=== PATIENT | female | born 1980 | race Caucasian/White ===

== ENCOUNTER 2025-07-27 06:09 | Observation (INO) ==
--- NOTE | 2025-07-27 07:12 | Emergency Department Note ---
Impression & Plan Confusion, Facial tingling, Dizziness ED Provider Note NAME: AMBER VICKERS AGE: 44 SEX: F : 1980 ARRIVES VIA: Ambulance INFORMANT: The patient herself. ED PROVIDER(S): Saba Damon PA-C, [José Beltrán MD] CHIEF COMPLAINT: Confusion HISTORY OF PRESENTING ILLNESS: The patient is a 44-year-old female with a PMH migraine, hypothyroidism, and anxiety who presents to the emergency department via EMS reporting waking up this morning and feeling "off". She describes it as feeling confused, dizzy, and tingling bilaterally on her face. She also reports not being able to "get the correct words to find the right things to say". She reports feeling anxious and feels "stupid being here". She describes the dizziness as both feeling like she is going to pass out and the room is spinning. She reports her symptoms improving from earlier this morning however still feels "off". She denies headache, changes in vision, slurred speech, facial droop, neck pain, weakness in upper or lower extremities, unsteady gait, fever, chest pain, shortness of breath, abdominal pain, nausea or vomiting, urinary symptoms. This has never happened to her before. REVIEW OF SYSTEMS: See HPI for pertinent positives and pertinent negatives. ALLERGIES: Penicillin, contrast, buspirone, cyclobenzaprine, fluoxetine, bee venom MEDICATIONS: See below PAST MEDICAL HISTORY: See below PHYSICAL EXAM: VITALS: Vitals are noted on the nurses note and reviewed by myself. Vital signs stable. GENERAL: 44-year-old female, lying in bed, in no acute distress, nondiaphoretic, well-developed well-nourished. SKIN: Capillary refill less than 2 seconds. HEENT: Normocephalic. PERRLA. EOMI. Nares patent. Mucous membranes moist. Neck is supple without nuchal rigidity. No facial droop. HEART: Regular rate and rhythm without murmurs gallops or rubs. LUNGS: CTA BL without wheezes, rales or rhonchi. No retractions or accessory muscle use. ABDOMEN: Positive BS x 4. Soft, nontender, without masses or organomegaly. No guarding or rebound tenderness. MUSCULOSKELETAL: No gross musculoskeletal defects. Normal gait. 5/5 strength upper and lower extremities bilaterally. No pedal edema. No calf tenderness. NEURO: Patient was alert and oriented to person place and time. Cranial nerves grossly intact. Normal sensation to light and sharp touch. No focal neurological deficits. DIFFERENTIAL DIAGNOSIS: Stroke, TIA, intracranial hemorrhage, malignancy, migraine, arrhythmia, [place], systemic infection, hypoglycemia, hyperglycemia, electrolyte abnormality, thyroid disorder, UTI, medication side effect, BPPV, anemia, among others. ED COURSE AND MEDICAL DECISION MAKING: MEDICATIONS GIVEN: Tylenol 1000 mg IV, 1 L normal saline, meclizine 25 mg PO MONITOR: Continuous aluminum shingle roofer: Order was placed for continuous aluminum shingle roofer. Patient was placed on the aluminum shingle roofer and continuous pulse ox. Patient was noted to be in normal sinus rhythm at an initial rate of 77 bpm per my interpretation. EKG: EKG was interpreted by myself as normal sinus rhythm. No obvious arrhythmia. NH interval 176 ms. QT interval 418 ms. No significant change compared to previous EKG from 05/02/2025. INTERPRETATION OF LABS: I interpreted the labs with full lab results as below in the lab section of this note. Pertinent lab results discussed in the MDM section below. INTERPRETATION OF IMAGING: I informally interpreted the patient's head CT which does not show evidence of obvious mass or hemorrhage and reviewed formal report below. ESCALATION OF CARE CONSIDERED: Escalation of care considered as the patient presents with confusion and feeling off from her baseline. Full workup in the ER completed without abnormality however patient has allergy to IV contrast dye so CTAs could not be ordered. Patient was admitted to the hospitalist for further management and MRI imaging. CONSULTATIONS: On-call [facility] hospitalist - Presented the patient to the provider and negative workup here in the ER. I do believe the patient would warrant from admission for MRI and further management as she does not feel herself. They are agreeable to evaluating the patient and ordering the image. MDM SUMMARY: I evaluated the 44-year-old female who presents to the emergency department due to confusion, feeling dizzy, bilateral tingling on her face, and feeling "off" since this morning. See HPI and PE above. Patient's vitals are stable. Initially Tylenol, 1 L normal saline, and meclizine given for symptom management. Physical exam is not consistent with acute stroke. Neurological exam is unremarkable and patient has full strength in upper and lower extremities. EKG obtained initial rate 77 bpm normal sinus rhythm. Labs reassuring. No leukocytosis. Hemodynamically stable. No electrolyte abnormality. No BURKE. Normal LFTs. Troponin <2.3. Urinalysis shows trace blood. No sign of infection. Patient has a listed IV contrast allergy as anaphylaxis. When discussing this with the patient she does confirm that her throat felt itchy and tingly. CT head without contrast obtained showing no acute infarct, hemorrhage, or mass effect. On reevaluation of the patient she confirms she is feeling less dizzy and slightly better however still is experiencing tingling on her face and head and feeling "off". I had a long discussion with the patient regarding her symptoms and I do believe she warrants admission for further evaluation and MRI imaging. Patient is initially hesitant but after talking with her she does agree to admission for workup. Consultation with the on-call hospitalist can be seen in detail above. They agreed to evaluate the patient and admitting to medicine. Patient was admitted in stable condition. Please see hospitalist note for further workup. DIAGNOSIS: Confusion, facial tingling, dizziness The chart was completed utilizing [employer] Speech voice recognition software. Grammatical errors, random word insertions, pronoun errors, and incomplete sentences are an occasional consequence of this system due to software limitations, ambient noise, and hardware issues. Any formal questions or concerns about the content, text, or information contained within the body of this dictation should be directly addressed to the provider for clarification. TREATMENT PLAN/DISCHARGE INSTRUCTIONS: Patient was admitted to medicine for further management. See their note for further detail and workup. Past Med/Surg History Problem List (Updated 07/28/25 @ 14:20 by Saba Damon PA-C) Dizziness (Acute) Facial tingling (Acute) Confusion (Acute) TIA (transient ischemic attack) Expressive aphasia Generalized anxiety disorder with panic attacks Hypothyroidism (Chronic) Migraine headache (Chronic) Surgical History No significant past surgical history Social History Smoking Status: Never smoker Tobacco Type: Cigarettes Second Hand Exposure: No; Do You Dip or Chew Tobacco: No; Hx Alcohol Use: No Hx Substance Use: No Preferred Language: Kiswahili Communication Ability: Effective Nurses Medical Assistants Phlebotomists Required: No Beliefs That Will Affect Care: None marital status: Single Current Living Situation: Family current occupational status: employed Feels Safe at Home: Yes Assistive Devices: None Allergies Allergies Allergy/AdvReac Type Severity Reaction Status Date / Time bee venom protein (honey bee) Allergy Severe Anaphylaxis Verified 06/20/25 15:38 Penicillins Allergy Severe Anaphylaxis Verified 06/20/25 15:38 tree and shrub pollen Allergy Unknown Unknown Verified 06/20/25 15:38 Iodinated Contrast Media Allergy Anaphylaxis Verified 06/20/25 15:38 buspirone [From BuSpar] AdvReac Intermediate Dizziness Verified 06/20/25 15:38 cyclobenzaprine AdvReac Intermediate Dizziness Verified 06/20/25 15:38 [From Flexeril] fluoxetine [From Prozac] AdvReac Intermediate Dizziness Verified 06/20/25 15:38 Home Meds Home Medications Medication Instructions Recorded Confirmed bupropion HCl 300 mg 24 hr tablet, 300 mg PO HS 05/19/25 07/27/25 extended release cetirizine 10 mg tablet 10 mg PO DAILY PRN Allergy Symptoms 05/19/25 07/27/25 cholecalciferol (vitamin D3) 25 0 mcg PO DAILY 05/19/25 07/27/25 mcg (1,000 unit) capsule (Vitamin D3) cyanocobalamin (vitamin B-12) 1,000 mcg IM WK 05/19/25 07/27/25 1,000 mcg/mL injection solution epinephrine 0.3 mg/0.3 mL 0.3 mg IM DIRECTED PRN Allergic 05/19/25 07/27/25 injection, auto-injector Reaction fluticasone furoate 100 1 inh inhalation DAILY 05/19/25 07/27/25 mcg-vilanterol 25 mcg/dose inhalation powder (Breo Ellipta) levothyroxine 175 mcg tablet 175 mcg PO DAILYBB 05/19/25 07/27/25 quetiapine 50 mg tablet 50 mg PO HS 05/19/25 07/27/25 sumatriptan succinate 25 mg tablet 25 mg PO DIRECTED PRN Migraine 05/19/25 07/27/25 Headache topiramate 100 mg tablet 100 mg PO DAILY 05/19/25 07/27/25 montelukast 10 mg tablet 10 mg PO DAILY 06/20/25 07/27/25 Previous Rx's Medication Instructions Recorded celecoxib 100 mg capsule 100 mg PO BID PRN pain #60 caps 04/21/25 promethazine 25 mg tablet 25 mg PO Q6H PRN nausea and 07/16/25 vomiting #10 tabs aspirin 81 mg tablet,delayed 81 mg PO QAM 20 days #20 tabs 07/28/25 release atorvastatin 40 mg tablet 40 mg PO QAM 30 days #30 tabs 07/28/25 clopidogrel 75 mg tablet 75 mg PO QAM 20 days #20 tabs 07/28/25 Results & Data (ED) Vital Signs Vital Signs - 24 hr 07/27/25 06:12 07/27/25 06:21 07/27/25 06:21 Temperature 36.7 C Temperature Source Oral Pulse Rate 96 H 87 Pulse Rate [Right Finger] Pulse Rhythm [Right Finger] Respiratory Rate 20 Respiratory Effort / Characteristics Non-Labored Respiratory Depth Normal Blood Pressure 141/92 H Blood Pressure [Right Arm] Blood Pressure Mean 108 Blood Pressure Mean [Right Arm] Pulse Oximetry 97 96 Oxygen Delivery Method Room Air Room Air Sepsis Recent Fever Within 48 Hours No Sepsis New/Unexplained Change in Mental Status Yes Sepsis Action Taken by Nursing No Action Required 07/27/25 06:21 07/27/25 07:01 07/27/25 08:02 Temperature Temperature Source Pulse Rate 83 80 Pulse Rate [Right Finger] 85 Pulse Rhythm [Right Finger] Regular Respiratory Rate 20 15 17 Respiratory Effort / Characteristics Non-Labored Respiratory Depth Normal Blood Pressure 147/91 H 121/81 Blood Pressure [Right Arm] 141/92 H Blood Pressure Mean 118 89 Blood Pressure Mean [Right Arm] 108 Pulse Oximetry 96 95 96 Oxygen Delivery Method Room Air Room Air Room Air Sepsis Recent Fever Within 48 Hours Sepsis New/Unexplained Change in Mental Status Sepsis Action Taken by Nursing 07/27/25 08:30 07/27/25 09:00 07/27/25 09:00 Temperature Temperature Source Pulse Rate 73 74 78 Pulse Rate [Right Finger] Pulse Rhythm [Right Finger] Respiratory Rate 13 16 18 Respiratory Effort / Characteristics Respiratory Depth Blood Pressure 121/75 124/83 124/83 Blood Pressure [Right Arm] Blood Pressure Mean 103 100 100 Blood Pressure Mean [Right Arm] Pulse Oximetry 93 95 98 Oxygen Delivery Method Room Air Room Air Room Air Sepsis Recent Fever Within 48 Hours Sepsis New/Unexplained Change in Mental Status Sepsis Action Taken by Nursing 07/27/25 09:30 Temperature Temperature Source Pulse Rate 73 Pulse Rate [Right Finger] Pulse Rhythm [Right Finger] Respiratory Rate 12 Respiratory Effort / Characteristics Respiratory Depth Blood Pressure 120/72 Blood Pressure [Right Arm] Blood Pressure Mean 85 Blood Pressure Mean [Right Arm] Pulse Oximetry 95 Oxygen Delivery Method Room Air Sepsis Recent Fever Within 48 Hours Sepsis New/Unexplained Change in Mental Status Sepsis Action Taken by Nursing Laboratory Data 07/27/25 06:15 07/27/25 06:15 Lab Results 07/27/25 07/27/25 Range/Units 06:15 08:02 WBC 7.10 (4.8-10.8) K/ul RBC 4.45 (4.20-5.40) M/uL Hgb 13.3 (12.0-16.0) g/dL Hct 40.1 (37.0-47.0) % MCV 90.1 (80.0-100.0) fL MCH 29.9 (25.0-34.0) pg MCHC 33.2 (32.0-36.0) g/dL RDW Std Deviation 44.4 (36.4-46.3) fL RDW Coeff of Estuardo 13.5 (11.5-14.5) % Plt Count 326 (130-400) K/uL MPV 9.7 (9.4-12.4) fL Immature Gran % (Auto) 0.7 % Neut % (Auto) 58.1 % Lymph % (Auto) 28.9 % [place] % (Auto) 7.5 % Eos % (Auto) 4.1 % Baso % (Auto) 0.7 % Neut # (Auto) 4.13 (1.40-6.50) K/uL Lymph # (Auto) 2.05 (1.20-3.40) K/uL [place] # (Auto) 0.53 (0.11-0.59) K/uL Eos # (Auto) 0.29 (0.00-0.50) K/uL Baso # (Auto) 0.05 (0.00-0.20) K/uL Immature Gran # (Auto) 0.05 (0.01-0.20) K/uL Sodium 140 (136-145) mmol/L Potassium 3.9 (3.5-5.1) mmol/L Chloride 105 (98-107) mmol/L Carbon Dioxide 27 (21-32) mmol/L Anion Gap 8 (3-11) BUN 11 (6-23) mg/dl Creatinine 0.83 (0.6-1.2) mg/dl Est Cr Clr Drug Dosing 111.4 ml/min eGFR 88.54 BUN/Creatinine Ratio 13.3 (10-20) Glucose 99 (70-99(Fasting)) mg/dl Estimat Average Glucose 108 mg/dl Hemoglobin A1c 5.4 (4.5-5.6) % Calcium 9.5 (8.6-10.3) mg/dl Total Bilirubin 0.4 (0.2-1.0) mg/dl AST 14 (13-39) U/L ALT 15 (7-52) U/L Alkaline Phosphatase 75 (34-104) U/L Troponin I High Sens < 2.3 (0-14) pg/ml Total Protein 7.7 (6.0-8.3) gm/dl Albumin 4.2 (3.4-5.0) gm/dl Globulin 3.5 (2.5-4.0) gm/dl Albumin/Globulin Ratio 1.2 (0.9-2) Triglycerides 137 (0-150) mg/dl Cholesterol 222 H (0-200) mg/dl LDL Cholesterol, Calc 134 mg/dl VLDL Cholesterol, Calc 27 (0-30) mg/dl HDL Cholesterol 61 mg/dl Cholesterol/HDL Ratio 3.6 (0-5) Urine Color Yellow Urine Appearance Clear (Clear) Urine pH 6.5 (4.5-7.5) Ur Specific [place] 1.021 (1.000-1.030) Urine Protein Negative (Negative) Urine Glucose (UA) Negative (Negative) Urine Ketones Negative (Negative) Urine Blood Trace H (Negative) Urine Nitrite Negative (Negative) Urine Bilirubin Negative (Negative) Urine Urobilinogen Negative (Negative) Ur Leukocyte Esterase Negative (Negative) Urine WBC (Auto) 6-10 H (0-5) /hpf Urine RBC (Auto) 0-2 (0-2) /hpf U Hyaline Cast (Auto) 0-2 (0-2) /lpf U Epithel Cells (Auto) 11-20 H (0-2) /hpf Urine Bacteria (Auto) 1+ H (None Seen) Urine Comment Administered Medications Acetaminophen (Acetaminophen 325 Mg Tab) 650 mg PO Q4H PRN PRN Reason: Pain or Fever Stop: 08/26/25 22:25 Last Admin: 07/28/25 13:32 Dose: 650 mg Documented By: PME Aspirin (Aspirin 81 Mg Ectab) [facility] [place] [facility] [place] Stop: 08/27/25 08:59 Last Admin: 07/28/25 09:06 Dose: 81 mg Documented By: PME Atorvastatin Calcium (Atorvastatin 40 Mg Tab) 40 [facility] [place] [facility] [place] Stop: 08/27/25 08:59 Last Admin: 07/28/25 09:06 Dose: 40 mg Documented By: PME Clopidogrel Bisulfate (Clopidogrel Bisulfate 75 Mg Tab) 75 [facility] [place] [facility] [place] Stop: 08/27/25 08:59 Last Admin: 07/28/25 09:06 Dose: 75 mg Documented By: PME Enoxaparin Sodium (Enoxaparin Inj 60 Mg/0.6 Ml Syr) 60 mg SQ Q24H [facility] Stop: 08/26/25 17:59 Last Admin: 07/27/25 18:36 Dose: 60 mg Documented By: SANDEE Levothyroxine Sodium (Levothyroxine Sodium 175 Mcg Tablet) [facility] Stop: 08/27/25 06:29 Last Admin: 07/28/25 05:35 Dose: 175 mcg Documented By: alexus Montelukast Sodium (Montelukast Sodium 10 Mg Tablet) 10 mg PO [facility] Stop: 08/26/25 21:14 Last Admin: 07/27/25 21:49 Dose: 10 mg Documented By: alexus Quetiapine Fumarate (Quetiapine Fumarate 25 Mg Tablet) 50 mg PO [facility] Stop: 08/26/25 20:59 Last Admin: 07/27/25 20:35 Dose: 50 mg Documented By: alexus Topiramate (Topiramate 100 Mg Tab) 100 mg PO [facility] Stop: 08/26/25 21:14 Last Admin: 07/27/25 21:49 Dose: 100 mg Documented By: alexus Discontinued Medications Sodium Chloride (Nss) 1,000 mls @ 999 mls/hr IV .Q1H1M ONE Stop: 07/27/25 08:59 Last Infusion: 07/27/25 10:24 Dose: Infused Documented By: Admin: 07/27/25 08:27 Dose: 999 mls/hr Documented By: LANDON Acetaminophen (Ofirmev) 1,000 mg in 100 mls @ 400 mls/hr IV NOW STA Stop: 07/27/25 08:13 Last Infusion: 07/27/25 09:26 Dose: Infused Documented By: Admin: 07/27/25 08:27 Dose: 400 mls/hr Documented By: LANDON Meclizine HCl (Meclizine Hcl 25 Mg Tab) 25 mg PO NOW STA Stop: 07/27/25 08:59 Last Admin: 07/27/25 09:43 Dose: Not Given Documented By: LANDON Imaging Data Radiologist's Impression: Chest X-Ray 07/27/25 07:20 EXAM: XR chest 1V portable CLINICAL HISTORY: Confusion, dizziness TECHNIQUE: An X-ray image of the chest is obtained in AP projection. COMPARISON: Prior X-ray dated 07/02/2025. FINDINGS: Pulmonary Parenchyma: Minimal haze noted in both lung bases likely due to overlying soft tissues. No evidence of consolidation, collapse, or focal opacities. No pulmonary nodules are identified. No evidence of pleural effusion or pleural thickening. Heart and Mediastinum: Heart size and shape are normal. No mediastinal widening or masses. No hilar or mediastinal lymphadenopathy. Bony Thorax: Bony thorax appears intact without fractures or deformities. Soft Tissues: Soft tissues overlying the chest wall are unremarkable. IMPRESSION: No acute cardiopulmonary abnormalities are identified, stable. Electronically signed by Mando Contreras 07-27-2025 08:[address] 07/27/25 07:20 EXAM: CT head/brain wo con CLINICAL HISTORY: confusion, dizziness TECHNIQUE: Axial non-contrast CT scan of the brain was performed from the skull base to the high parietal region in axial, sagittal and coronal reconstructions. One of the following dose reduction techniques were utilized for this exam: Automated exposure control, adjustment of the mA and/or kV according to patient size, use of iterative reconstruction. COMPARISON: Prior CT head dated 07/16/2025 reviewed. FINDINGS: Brain Parenchyma: Normal attenuation of the cerebral hemispheres, cerebellum, and brainstem. No evidence of acute infarct, hemorrhage, or mass effect. No abnormal areas of hypo- or hyperattenuation. Ventricular System: Ventricles are normal in size and configuration. No evidence of hydrocephalus or ventricular enlargement. Subarachnoid Spaces: Normal sulci and cisterns. No evidence of subarachnoid hemorrhage or extra-axial fluid collections. Cerebellum and Brainstem: No masses, lesions, or areas of abnormal density. Orbits: Normal appearance of the globes, optic nerves, and extraocular muscles. No evidence of orbital masses or abnormal density. Sinuses: Clear paranasal sinuses. No evidence of sinusitis or mucosal thickening. Hypertrophied bilateral inferior turbinates seen. Mastoid Air Cells: Clear mastoid air cells. No evidence of mastoiditis. Skull: Normal skull morphology. IMPRESSION: No evidence of acute infarct, hemorrhage, or mass effect. Early changes of a stroke may not be detected on a CT scan. If strong clinical suspicion of stroke, then suggest MRI with diffusion-weighted imaging. Electronically signed by Mando Contreras 07-27-2025 08:57 AM Discharge Plan Visit Data Chief Complaint: Confusion Stated Complaint: Confusion ED Provider: José Beltrán ED Midlevel Provider: Saba Damon Discharge Problem: Confusion, Facial tingling, Dizziness Patient Disposition: Admitted As Inpatient Condition: Good Discharge Instructions Interventions: ED Discharge Assessment Last Done: 07/27/25 15:47
[2025-07-27 07:36] LABS: Hematocrit (blood only) 40.1 % (37.0-47.0); Hemoglobin 13.3 g/dL (12.0-16.0); Immature Granulocytes # (auto) 0.05 K/uL (0.01-0.20); Immature Granulocytes % (auto) 0.7 %; Mean Corpuscular Hemoglobin 29.9 pg (25.0-34.0); Mean Corpuscular Volume 90.1 fL (80.0-100.0); Platelet Count 326 K/uL (130-400); RDW Standard Deviation 44.4 fL (36.4-46.3); Red Blood Count 4.45 M/uL (4.20-5.40); White Blood Count 7.10 K/ul (4.8-10.8)
[2025-07-27 07:56] LABS: Alanine Aminotransferase 15 U/L (7-52); Albumin Globulin Ratio 1.2 (0.9-2); Albumin Level 4.2 gm/dl (3.4-5.0); Alkaline Phosphatase 75 U/L (34-104); Anion Gap 8 (3-11); Bilirubin,Total 0.4 mg/dl (0.2-1.0); Blood Urea Nitrogen 11 mg/dl (6-23); Calcium 9.5 mg/dl (8.6-10.3); Carbon Dioxide 27 mmol/L (21-32); Chloride 105 mmol/L (98-107); Creatinine Clr Calc Pharmacy 111.4 ml/min; Globulin 3.5 gm/dl (2.5-4.0); Glucose 99 mg/dl (70-99(Fasting)); Potassium 3.9 mmol/L (3.5-5.1); Sodium 140 mmol/L (136-145); Total Protein 7.7 gm/dl (6.0-8.3)
--- NOTE | 2025-07-27 08:12 | XRay Report ---
EXAM: XR chest 1V portable CLINICAL HISTORY: Confusion, dizziness TECHNIQUE: An X-ray image of the chest is obtained in AP projection. COMPARISON: Prior X-ray dated 07/02/2025. FINDINGS: Pulmonary Parenchyma: Minimal haze noted in both lung bases likely due to overlying soft tissues. No evidence of consolidation, collapse, or focal opacities. No pulmonary nodules are identified. No evidence of pleural effusion or pleural thickening. Heart and Mediastinum: Heart size and shape are normal. No mediastinal widening or masses. No hilar or mediastinal lymphadenopathy. Bony Thorax: Bony thorax appears intact without fractures or deformities. Soft Tissues: Soft tissues overlying the chest wall are unremarkable. IMPRESSION: No acute cardiopulmonary abnormalities are identified, stable. Electronically signed by Mando Contreras 07-27-2025 08:12 AM
[2025-07-27] MEDS: ACETAMINOPHEN 1,000 MG/100 ML VIAL IV STA (08:27)
[2025-07-27] MEDS: SODIUM CHLORIDE 0.9% 1,000 ML IV ONE (08:27)
[2025-07-27 08:32] LABS: Appearance Urine Clear (Clear); Bacteria Urine Automated 1+ (None Seen); Cast Urine Automated 0-2 /lpf (0-2); Glucose Urine UA Negative (Negative); RBC Urine Automated 0-2 /hpf (0-2)
--- NOTE | 2025-07-27 08:57 | CT Scan Report ---
EXAM: CT head/brain wo con CLINICAL HISTORY: confusion, dizziness TECHNIQUE: Axial non-contrast CT scan of the brain was performed from the skull base to the high parietal region in axial, sagittal and coronal reconstructions. One of the following dose reduction techniques were utilized for this exam: Automated exposure control, adjustment of the mA and/or kV according to patient size, use of iterative reconstruction. COMPARISON: Prior CT head dated 07/16/2025 reviewed. FINDINGS: Brain Parenchyma: Normal attenuation of the cerebral hemispheres, cerebellum, and brainstem. No evidence of acute infarct, hemorrhage, or mass effect. No abnormal areas of hypo- or hyperattenuation. Ventricular System: Ventricles are normal in size and configuration. No evidence of hydrocephalus or ventricular enlargement. Subarachnoid Spaces: Normal sulci and cisterns. No evidence of subarachnoid hemorrhage or extra-axial fluid collections. Cerebellum and Brainstem: No masses, lesions, or areas of abnormal density. Orbits: Normal appearance of the globes, optic nerves, and extraocular muscles. No evidence of orbital masses or abnormal density. Sinuses: Clear paranasal sinuses. No evidence of sinusitis or mucosal thickening. Hypertrophied bilateral inferior turbinates seen. Mastoid Air Cells: Clear mastoid air cells. No evidence of mastoiditis. Skull: Normal skull morphology. IMPRESSION: No evidence of acute infarct, hemorrhage, or mass effect. Early changes of a stroke may not be detected on a CT scan. If strong clinical suspicion of stroke, then suggest MRI with diffusion-weighted imaging. Electronically signed by Mando Contreras 07-27-2025 08:57 AM
[2025-07-27] MEDS: MECLIZINE HCL 25 MG TAB PO STA (09:43)
--- NOTE | 2025-07-27 12:33 | History & Physical Report ---
Date of Service July 27, 2025 Assessment & Plan (1) Expressive aphasia: (2) TIA (transient ischemic attack): (3) Hypothyroidism: Plan In summary this is a 44-year-old female who presents with transient expressive aphasia that has resolved at the time of arrival to the emergency department concerning for transient ischemic attack #Expressive aphasia // TIA Patient presented with symptoms concerning of expressive aphasia that resolved at the time of arrival to the emergency department; last known well was in the evening of 07/26; comorbid risk factors include the patient's obesity; ABCD2 score of 2 (blood pressure and deficit) NIHSS score of 0 - Start aspirin 81 mg p.o. daily and clopidogrel 75 mg p.o. daily for 21 days -Pending A1c, fasting lipid panel -In the absence of prescribed warfarin, consideration of the patient's age, and family history absent of thrombophilia we will not pursue coagulability testing at this time - MRI brain without contrast pending -No clear indication for intravenous fluids at this time #Acquired hypothyroidism Nonadherent with replacement therapy; discussed the risks of unmanaged hypothyroidism, though do not suspect this is contributing to their primary problem as untreated hypothyroidism does not manifest as focal neurologic deficits DVT PPx: Start Lovenox 60 mg SQ daily GI PPx: Not indicated at this time History of Present Illness Chief Complaint: Difficulty with speech Primary Care Provider: Yuri Byrnes DO Ms. Montano is a 44-year-old female whose active medical conditions include chronic migraines with atypical neurologic symptoms, class III obesity, severe anxiety with episodic panic among other chronic medical conditions who presented to the [facility] on 07/27 due to difficulty with speech. The patient's last known normal was in the evening on 07/26. Upon awaking on 07/27, she attempted to speak with her son, but was unable to express any speech; she denies any difficulty with thinking of the words to say, just with expressing nonverbally. She denies any additional neurologic deficits present at the time of this symptom. She has never experienced symptoms like this previously. She does have a history of migraines with atypical neurologic symptoms, but has no associated migraine at this time. The patient denies focal motor weakness, paresthesia, dysphagia, dysarthria, loss of bowel or bladder continence, vision changes, double vision, difficulty with balance, recent head injuries, initiation or adjustment of medications. Allergies Allergy/AdvReac Type Severity Reaction Status Date / Time bee venom protein (honey bee) Allergy Severe Anaphylaxis Verified 06/20/25 15:38 Penicillins Allergy Severe Anaphylaxis Verified 06/20/25 15:38 tree and shrub pollen Allergy Unknown Unknown Verified 06/20/25 15:38 Iodinated Contrast Media Allergy Anaphylaxis Verified 06/20/25 15:38 buspirone [From BuSpar] AdvReac Intermediate Dizziness Verified 06/20/25 15:38 cyclobenzaprine AdvReac Intermediate Dizziness Verified 06/20/25 15:38 [From Flexeril] fluoxetine [From Prozac] AdvReac Intermediate Dizziness Verified 06/20/25 15:38 Home Medications Medication Instructions Recorded Confirmed Type celecoxib 100 mg capsule 100 mg PO BID PRN pain #60 caps 04/21/25 07/27/25 Rx bupropion HCl 300 mg 24 hr tablet, 300 mg PO HS 05/19/25 07/27/25 History extended release cetirizine 10 mg tablet 10 mg PO DAILY PRN Allergy Symptoms 05/19/25 07/27/25 History cholecalciferol (vitamin D3) 25 0 mcg PO DAILY 05/19/25 07/27/25 History mcg (1,000 unit) capsule (Vitamin D3) clonazepam 1 mg tablet 1 mg PO DAILY PRN Anxiety 05/19/25 07/27/25 History cyanocobalamin (vitamin B-12) 1,000 mcg IM WK 05/19/25 07/27/25 History 1,000 mcg/mL injection solution epinephrine 0.3 mg/0.3 mL 0.3 mg IM DIRECTED PRN Allergic 05/19/25 07/27/25 History injection, auto-injector Reaction fluticasone furoate 100 1 inh inhalation DAILY 05/19/25 07/27/25 History mcg-vilanterol 25 mcg/dose inhalation powder (Breo Ellipta) fluticasone propionate 50 2 spray intranasal DAILY 05/19/25 07/27/25 History mcg/actuation nasal spray,suspension levothyroxine 175 mcg tablet 175 mcg PO DAILYBB 05/19/25 07/27/25 History quetiapine 50 mg tablet 50 mg PO HS 05/19/25 07/27/25 History sumatriptan succinate 25 mg tablet 25 mg PO DIRECTED PRN Migraine 05/19/25 07/27/25 History Headache topiramate 100 mg tablet 100 mg PO DAILY 05/19/25 07/27/25 History montelukast 10 mg tablet 10 mg PO DAILY 06/20/25 07/27/25 History phenazopyridine 200 mg tablet 200 mg PO Q8H PRN pain 6 doses #6 06/20/25 07/27/25 Rx (Pyridium) tabs promethazine 25 mg tablet 25 mg PO Q6H PRN nausea and 07/16/25 07/27/25 Rx vomiting #10 tabs Past Med/Surg History Problem List (Updated 07/27/25 @ 12:56 by Shamir Rodriguez DO) TIA (transient ischemic attack) Expressive aphasia Generalized anxiety disorder with panic attacks Hypothyroidism (Chronic) Migraine headache (Chronic) Surgical History No significant past surgical history Social History (Updated 07/27/25 @ 12:53 by Shamir Rodriguez DO) Smoking Status: Never smoker Tobacco Type: Cigarettes Preferred Language: Telugu marital status: Single Current Living Situation: Alone current occupational status: employed Feels Safe at Home: Yes Review of Systems Review of Systems: Review of constitutional, cardiovascular, pulmonary, neurologic systems was unremarkable except for pertinent positive and negative findings discussed above Physical Exam Physical Exam: General: Adult female in no acute distress Vital Signs: Reviewed HEENT: Moist mucous membranes; pupils equally round and reactive to light; extraocular motion intact Pulmonary: Symmetric chest wall excursion without restriction; comfortable respiration Cardiovascular: Regular rate and rhythm without murmurs, rubs, or gallops; S1 and S2 normal; right radial pulse 2+; no notable lower extremity edema Neurologic: Cranial nerves II through XII intact; no discernible focal weakness no paresthesia; cerebellar assessment was unremarkable; speech is fluent, clear Results & Data Results & Data Vital Signs (Past 12 Hours) Vital Signs Temp Pulse Pulse Resp BP BP Pulse Ox 07/27/25 11:30 73 17 129/78 97 07/27/25 11:00 80 19 118/83 96 07/27/25 10:33 81 14 108/73 96 07/27/25 09:30 73 12 120/72 95 07/27/25 09:00 78 18 124/83 98 07/27/25 09:00 74 16 124/83 95 07/27/25 08:30 73 13 121/75 93 07/27/25 08:02 80 17 121/81 96 07/27/25 07:01 83 15 147/91 H 95 07/27/25 06:21 85 20 141/92 H 96 07/27/25 06:21 96 07/27/25 06:21 36.7 C 87 20 141/92 H 97 07/27/25 06:12 96 H O2 Del Method 07/27/25 11:30 Room Air 07/27/25 11:00 Room Air 07/27/25 10:33 Room Air 07/27/25 09:30 Room Air 07/27/25 09:00 Room Air 07/27/25 09:00 Room Air 07/27/25 08:30 Room Air 07/27/25 08:02 Room Air 07/27/25 07:01 Room Air 07/27/25 06:21 Room Air 07/27/25 06:21 Room Air 07/27/25 06:21 Room Air 07/27/25 06:12 Laboratory Results Unremarkable Diagnostic Findings CT head without contrast was unremarkable for acute injuries Code Status & VTE Plan Code Status Full code VTE Prophylaxis Plan VTE Prophylaxis will be ordered: Yes PG Care Time/CCT Total # of Minutes Spent Total Time Spent with Patient: Total time spent is greater than 50% in coordination of care (as documented) at patient's floor/unit and/or counseling patient: Coding Level of Care Code 67479 INT INP/OBS CARE 2/55MIN Diagnoses Expressive aphasia R47.01 TIA (transient ischemic attack) G45.9 Hypothyroidism E03.9
--- NOTE | 2025-07-27 13:12 | Magnetic Resonance Report ---
MRI OF THE BRAIN WITHOUT IV CONTRAST CLINICAL HISTORY: Dizziness. Extremity tingling. COMPARISON STUDY: Head CT July 16, [address] performed earlier today. TECHNIQUE: MRI of the brain was performed utilizing various T1 and T2-weighted sequences in the axial , sagittal, and coronal planes. IV contrast was not administered for this examination. FINDINGS: Brain parenchyma: There are no foci of restricted diffusion to suggest acute infarct. No acute intrac ranial hemorrhage, midline shift or mass effect is present. No intracranial masses are identified on unenhanced exam. There is no significant parenchymal signal abnormality. Ventricles, sulci, and cisterns: There is no hydrocephalus. The basal cisterns are patent. There are no extra-axial collections. Pituitary and sella: Unremarkable. Intracranial vasculature: Flow-voids for the major intracranial vessels are present. Orbits: Orbital contents are unremarkable. Sinuses and mastoids: There are postoperative findings within the sinuses. There is no significant si nus opacification. Trace fluid within left mastoid air cells is present. Calvarium: No calvarial lesions are identified. Cervical cord: Partially visualized cervical spinal cord is normal in morphology and signal intensity . IMPRESSION: Unremarkable unenhanced MRI of the brain. ACT 112: Negative or not required by law. Electronically signed by: Hossein Lauren M.D. 07/27/2025 1:11 PM
[2025-07-27 14:36] LABS: Hemoglobin A1C 5.4 % (4.5-5.6)
[2025-07-27 15:08] LABS: Cholesterol 222 mg/dl (0-200); HDL Cholesterol 61 mg/dl; Triglycerides 137 mg/dl (0-150)
[2025-07-27] MEDS: ENOXAPARIN INJ 60 MG/0.6 ML SYR SQ SCH (18:36)
--- NOTE | 2025-07-27 18:44 | Electrocardiogram Report ---
Test Reason : Blood Pressure : */* mmHG Vent. Rate : 77 BPM Atrial Rate : 77 BPM P-R Int : 176 ms QRS Dur : 78 ms QT Int : 370 ms P-R-T Axes : 42 50 31 degrees QTcB Int : 418 ms Normal sinus rhythm Normal ECG When compared with ECG of 02-Jul-2025 14:20, No significant change was found Confirmed by Leonidas Smith ([id number]) on 07/27/2025 6:44:34 PM Referred By: REFERRED SELF Confirmed By: Leonidas Smith
[2025-07-27] MEDS: TOPIRAMATE 100 MG TAB PO SCH (21:49)
[2025-07-27] MEDS: MONTELUKAST SODIUM 10 MG TABLET PO SCH (21:49)
[2025-07-28] MEDS: LEVOTHYROXINE SODIUM 175 MCG TABLET PO SCH (05:35)
[2025-07-28] MEDS ORDERED: TOPIRAMATE 100 MG TAB PO SCH (09:00)
[2025-07-28] MEDS ORDERED: MONTELUKAST SODIUM 10 MG TABLET PO SCH (09:00)
[2025-07-28] MEDS: ASPIRIN 81 MG ECTAB PO SCH (09:06)
[2025-07-28] MEDS: ATORVASTATIN 40 MG TAB PO SCH (09:06)
[2025-07-28] MEDS: CLOPIDOGREL BISULFATE 75 MG TAB PO SCH (09:06)
[2025-07-28] MEDS: ACETAMINOPHEN 325 MG TAB PO PRN (13:32)
--- NOTE | 2025-07-28 15:26 | Hospitalist Progress Note ---
Date of Service July 28, 2025 Assessment & Plan (1) Expressive aphasia: (2) TIA (transient ischemic attack): (3) Hypothyroidism: Plan In summary this is a 44-year-old female who presents with transient expressive aphasia that has resolved at the time of arrival to the emergency department concerning for transient ischemic attack #Expressive aphasia // TIA Patient presented with symptoms concerning of expressive aphasia that resolved at the time of arrival to the emergency department; last known well was in the evening of 07/26; comorbid risk factors include the patient's obesity; ABCD2 score of 2 (blood pressure and deficit) NIHSS score of 0 - Continue aspirin 81 mg p.o. daily and clopidogrel 75 mg p.o. daily for 21 days - A1c 5.7% - Lipid panel remarkable for elevated LDL and Triglycerides; start atorvastatin 40 mg p.o. daily -In the absence of prescribed warfarin, consideration of the patient's age, and family history absent of thrombophilia we will not pursue coagulability testing at this time - MRI brain without contrast did not reveal intracranial pathology - No clear indication for intravenous fluids at this time - PT and OT consulted - Pending orthostatic vital signs #Acquired hypothyroidism Nonadherent with replacement therapy; discussed the risks of unmanaged hypothyroidism, though do not suspect this is contributing to their primary problem as untreated hypothyroidism does not manifest as focal neurologic deficits DVT PPx: Continue Lovenox 60 mg SQ daily GI PPx: Not indicated at this time Admission and Anticipated Discharge Date Admission Date: July 27, 2025 Subjective Ms. Montano is a 44-year-old female whose active medical conditions include chronic migraines with atypical neurologic symptoms, class III obesity, severe anxiety with episodic panic among other chronic medical conditions who presented to the [facility] on 07/27 due to difficulty with speech. No acute overnight events; no recurrent episodes of aphasia, endorses continued dizziness that does not change with head position. They deny double vision. Review of Systems Review of Systems: Review of constitutional, cardiovascular, pulmonary, neurologic systems was unremarkable except for pertinent positive and negative findings discussed above Physical Exam Physical Exam: General: Adult female in no acute distress Vital Signs: Reviewed HEENT: Moist mucous membranes; pupils equally round and reactive to light; extraocular motion intact Pulmonary: Symmetric chest wall excursion without restriction; comfortable respiration Cardiovascular: Regular rate and rhythm without murmurs, rubs, or gallops; S1 and S2 normal; right radial pulse 2+; no notable lower extremity edema Neurologic: Cranial nerves II through XII intact; no discernible focal weakness no paresthesia; cerebellar assessment was unremarkable; speech is fluent, clear Results & Data Results & Data Vital Signs (Past 12 Hours) Vital Signs Temp Pulse Resp BP Pulse Ox O2 Del Method 07/28/25 08:20 36.8 C 76 18 128/83 96 Room Air PG Care Time/CCT Total # of Minutes Spent Total Time Spent with Patient: Total time spent is greater than 50% in coordination of care (as documented) at patient's floor/unit and/or counseling patient: Coding Level of Care Code 00497 SUB INP/OBS CARE 2/35MIN Diagnoses Expressive aphasia R47.01 TIA (transient ischemic attack) G45.9 Hypothyroidism E03.9
--- NOTE | 2025-07-29 08:06 | Hospitalist Progress Note ---
Date of Service July 29, 2025 Assessment & Plan (1) Expressive aphasia: (2) TIA (transient ischemic attack): (3) Hypothyroidism: Plan In summary this is a 44-year-old female who presents with transient expressive aphasia that has resolved at the time of arrival to the emergency department concerning for transient ischemic attack #Expressive aphasia // TIA Patient presented with symptoms concerning of expressive aphasia that resolved at the time of arrival to the emergency department; last known well was in the evening of 07/26; comorbid risk factors include the patient's obesity; ABCD2 score of 2 (blood pressure and deficit) NIHSS score of 0; continues to endorse left arm paresthesia and weakness, but without objective evidence of this on exam; postural dizziness is also not able to be elicited with physical exam assessment and is not consequential of orthostasis; suspect these symptoms may be related to the missed doses of Wellbutrin at the start of their hospitalization versus complex migraine given their occurrence with headache onset on 07/28 - Continue aspirin 81 mg p.o. daily and clopidogrel 75 mg p.o. daily for 21 days - A1c 5.7% - Lipid panel remarkable for elevated LDL and Triglycerides; continue atorvastatin 40 mg p.o. daily - In the absence of prescribed warfarin, consideration of the patient's age, and family history absent of thrombophilia we will not pursue coagulability testing at this time - MRI brain without contrast did not reveal intracranial pathology - No clear indication for intravenous fluids at this time - PT and OT consulted; no objective findings - Normal orthostatic vital signs #Complex migraine // Dizziness Persistent headache with associated sense of feeling off balance, but without katerin vertiginous symptoms; suspect this is related to the patient's persistent migraine that has not resolved with abortive therapies; meclizine, though not a preferred choice of treatment, was not helpful for symptom relief - Start acetaminophen 100 mg IV every 8 hours scheduled, then transition to p.o. - Withhold NSAID at this time given DAPT - Neurology consulted for assistance with persistent dizziness #Acquired hypothyroidism Nonadherent with replacement therapy; discussed the risks of unmanaged hypothyroidism, though do not suspect this is contributing to their primary problem as untreated hypothyroidism does not manifest as focal neurologic d eficits DVT PPx: Continue Lovenox 60 mg SQ daily GI PPx: Not indicated at this time Admission and Anticipated Discharge Date Admission Date: July 28, 2025 Subjective Ms. Montano is a 44-year-old female whose active medical conditions include chronic migraines with atypical neurologic symptoms, class III obesity, severe anxiety with episodic panic among other chronic medical conditions who presented to the [facility] on 07/27 due to difficulty with speech. No acute overnight events; no recurrent episodes of aphasia, endorses continued dizziness, left upper extremity "tingling" and subjective left sleep tech weakness Review of Systems Review of Systems: Review of constitutional, cardiovascular, pulmonary, neurologic systems was unremarkable except for pertinent positive and negative findings discussed above Physical Exam Physical Exam: General: Adult female in no acute distress Vital Signs: Reviewed HEENT: Moist mucous membranes; pupils equally round and reactive to light; extraocular motion intact Pulmonary: Symmetric chest wall excursion without restriction; comfortable respiration Cardiovascular: Regular rate and rhythm without murmurs, rubs, or gallops; S1 and S2 normal; right radial pulse 2+; no notable lower extremity edema Neurologic: Cranial nerves II through XII intact; no discernible focal weakness; subjective slight paresthesia of the left upper extremity, sensation is intact; cerebellar assessment was unremarkable; speech is fluent, clear Results & Data Results & Data Vital Signs (Past 12 Hours) Vital Signs Temp Pulse Resp BP Pulse Ox O2 Del Method 07/29/25 07:44 36.7 C 83 16 117/75 98 Room Air 07/28/25 22:24 36.2 C L 70 18 117/80 96 Room Air PG Care Time/CCT Total # of Minutes Spent Total Time Spent with Patient: Total time spent is greater than 50% in coordination of care (as documented) at patient's floor/unit and/or counseling patient: Coding Level of Care Code 69972 SUB INP/OBS CARE 2/35MIN Diagnoses Expressive aphasia R47.01 TIA (transient ischemic attack) G45.9 Acquired hypothyroidism E03.9 Hypothyroidism type: acquired (3) Hypothyroidism Hypothyroidism type: acquired Qualified Code(s): E03.9 - Hypothyroidism, unspecified
[2025-07-29] MEDS: MECLIZINE HCL 25 MG TAB PO STA (11:37)
[2025-07-29] MEDS: ACETAMINOPHEN 1,000 MG/100 ML VIAL IV SCH (15:44)
--- NOTE | 2025-07-29 18:51 | Neurology Consultation ---
Date of Consultation July 29, 2025 Assessment & Plan (1) Complicated migraine: (2) Vertigo: Plan 45-year-old female with a history of migraine, increasing frequency recently, had presented with confusion, word finding difficulty, vertigo, and migrainous headache. She had presented to the emergency department on July 16 with migraine and dizziness as well. She has been taking topiramate and sumatriptan as an outpatient for her migraines, these medications have not been very helpful. She currently has an intact neurological examination, did have some subtle difficulty with ocular tracking although no obvious nystagmus, no ataxia. She has normal speech, no aphasia at this time. She is alert, appropriate, and fully oriented and does not have any focal or lateralizing deficits on her neurological examination. She had a normal brain MRI as well. Her current presentation is most consistent with complicated migraine. She probably has been experiencing some migraine associated vertigo as well. Peripheral vertigo could also be considered but is probably less likely. Although she had some word finding difficulty, this particular symptom was likely migrainous, and not likely due to stroke or TIA. I am not sure I see a clear indication for dual antiplatelet therapy or a statin. Continuing with aspirin 81 mg/day for the time being would be reasonable, however. I would recommend a carotid ultrasound as she is unable to have a CT angiogram due to severe allergy to iodinated contrast media. May utilize meclizine as ordered to address her vertigo. Would also recommend treatment with physical therapy. Going forward, because topiramate has not been very helpful for migraine prevention, would consider discontinuing this medication in favor of a trial of Depakote. Would suggest starting with Depakote ER 500 mg daily. Further, because sumatriptan has not been very helpful for her migraines, would suggest a trial of rizatriptan 10 mg at migraine onset as an alternative. She can follow-up with myself or an BALDEMAR in neurology clinic in 2 to 3 weeks after discharge. May consider alternative migraine treatments at that time such as CGRP blockers for either prevention or acute treatment. Could also consider a trial of verapamil for migraine prevention depending on how she does with Depakote. Please call with any questions. History of Present Illness Reason for Consultation: complex migraine Requesting Physician: Michael Attending Physician: Shamir Rodriguez, DO History of Present Illness The patient is a 45-year-old female with a history of migraine, episodes tend to occur with change in weather, barometric pressure, have been increasing in frequency recently. She has been prescribed topiramate and sumatriptan. She presented to the emergency department on July 27 with dizziness that was present upon awakening and difficulty expressing herself, impaired word finding, associated anxiety. She described the dizziness as a sensation of motion, worse with sitting up as well as with attempts at walking. She endorses chronic tinnitus, no ear pain. Her symptoms are modestly improved. A noncontrast CT of the head was normal. She has an iodine allergy. She had a follow-up noncontrast brain MRI completed July 27. This study was normal. I independently reviewed these images, no evidence of acute or subacute infarct, no chronic microhemorrhage, no Chiari malformation or hydrocephalus, no signif icant parenchymal abnormality. An electrocardiogram revealed a normal sinus rhythm, 77 bpm. Past medical history notable for Penelope's thyroiditis, hypothyroidism, anxiety, panic attacks. I see that she had presented to the emergency department on July 16, 2025 for further evaluation of a migraine headache that began the day before, no improvement with her Imitrex, associated dizziness, mild nausea. Allergies Allergy/AdvReac Type Severity Reaction Status Date / Time bee venom protein (honey bee) Allergy Severe Anaphylaxis Verified 06/20/25 15:38 Penicillins Allergy Severe Anaphylaxis Verified 06/20/25 15:38 tree and shrub pollen Allergy Unknown Unknown Verified 06/20/25 15:38 Iodinated Contrast Media Allergy Anaphylaxis Verified 06/20/25 15:38 buspirone [From BuSpar] AdvReac Intermediate Dizziness Verified 06/20/25 15:38 cyclobenzaprine AdvReac Intermediate Dizziness Verified 06/20/25 15:38 [From Flexeril] fluoxetine [From Prozac] AdvReac Intermediate Dizziness Verified 06/20/25 15:38 Home Medications Medication Instructions Recorded Confirmed Type celecoxib 100 mg capsule 100 mg PO BID PRN pain #60 caps 04/21/25 07/27/25 Rx bupropion HCl 300 mg 24 hr tablet, 300 mg PO HS 05/19/25 07/27/25 History extended release cetirizine 10 mg tablet 10 mg PO DAILY PRN Allergy Symptoms 05/19/25 07/27/25 History cholecalciferol (vitamin D3) 25 0 mcg PO DAILY 05/19/25 07/27/25 History mcg (1,000 unit) capsule (Vitamin D3) cyanocobalamin (vitamin B-12) 1,000 mcg IM WK 05/19/25 07/27/25 History 1,000 mcg/mL injection solution epinephrine 0.3 mg/0.3 mL 0.3 mg IM DIRECTED PRN Allergic 05/19/25 07/27/25 History injection, auto-injector Reaction fluticasone furoate 100 1 inh inhalation DAILY 05/19/25 07/27/25 History mcg-vilanterol 25 mcg/dose inhalation powder (Breo Ellipta) levothyroxine 175 mcg tablet 175 mcg PO DAILYBB 05/19/25 07/27/25 History quetiapine 50 mg tablet 50 mg PO HS 05/19/25 07/27/25 History sumatriptan succinate 25 mg tablet 25 mg PO DIRECTED PRN Migraine 05/19/25 07/27/25 History Headache topiramate 100 mg tablet 100 mg PO DAILY 05/19/25 07/27/25 History montelukast 10 mg tablet 10 mg PO DAILY 06/20/25 07/27/25 History promethazine 25 mg tablet 25 mg PO Q6H PRN nausea and 07/16/25 07/27/25 Rx vomiting #10 tabs aspirin 81 mg tablet,delayed 81 mg PO QAM 20 days #20 tabs 07/28/25 Rx release atorvastatin 40 mg tablet 40 mg PO QAM 30 days #30 tabs 07/28/25 Rx clopidogrel 75 mg tablet 75 mg PO QAM 20 days #20 tabs 07/28/25 Rx Patient History Surgical History No significant past surgical history Social History Smoking Status: Never smoker Tobacco Type: Cigarettes Second Hand Exposure: No; Do You Dip or Chew Tobacco: No; Tobacco Cessation Education Requested by Patient: No Hx Alcohol Use: No Hx Substance Use: No Preferred Language: Turkish Communication Ability: Effective Targeteer Required: No Beliefs That Will Affect Care: None marital status: Single Current Living Situation: Family current occupational status: employed Feels Safe at Home: Yes Safety Concerns: Feels Safe At This Time Assistive Devices: None Review of Systems Constitutional: no fever Eyes: no blind spots and no diplopia Ear, Nose, Mouth, Throat: as per Subjective / HPI and + tinnitus; no hearing loss Respiratory: no dyspnea Cardiovascular: no chest pain Gastrointestinal: no nausea and no vomiting Genitourinary: no dysuria Musculoskeletal: no myalgia Integumentary: no rash Neurologic: as per Subjective / HPI, + gait abnormality, + headache(s) and + abnormal speech; no localized weakness, no loss of sensation, no lack of coordination, no tremor(s) and no abnormal movements Psychiatric: as per Subjective / HPI and + anxiety Hematologic / Lymphatic: no easy bleeding and no easy bruising Exam (Neuro) Constitutional: well developed and well nourished; no acute distress Eyes: normal visual lara by confrontation, PERRL, normal accommodation and EOM intact bilaterally; no nystagmus Neurologic: Oriented to:: Person, Place and Time Memory: Short Term Intact and Remote Intact Attention: Span Intact and Concentration Intact Language: Naming Objects and Repeating Phrases Speech Fluency: negative Dysarthria Speech Aphasia: negative Aphasia Fund of Knowledge: Current Events, Past History and Vocabulary Cranial Nerves: Normal II (Visual lara full to confrontation, visual acuity normal), III, IV, (Pupils equal round reactive to light and accommodation, eye movements normal), V (Facial sensation intact), VII (There is no facial droop or weakness), VIII (Hearing intact), IX, X (Palate elevates to midline), XI (Shoulder shrug intact) and XII (Tongue prot rudes to midline) Motor Strength: Normal Lower Extremities and Normal Upper Extremities; negative Pronator Drift Motor Tone: Normal Lower Extremities and Normal Upper Extremities Muscle Bulk/Involuntary Movements: No Involuntary Movements; negative Muscle Atrophy Sensation: Light Touch Intact, Pain/Temperature Intact, Vibration Intact and Proprioception Intact Coordination: Normal; negative Limited Balance, Dysdiadochokinesia, Finger-Nose Abnormal or Heel-Leiva Abnormal Deep Tendon Reflexes: Rt Triceps: 2+, Lt Triceps: 2+, Rt Biceps: 2+, Lt Biceps: 2+, Rt Brachioradialis: 2+, Lt Brachioradialis: 2+, Rt Patellar: 2+, Lt Patellar: 2+, Rt Ankle: 2+ and Lt Ankle: 2+ Special Tests: negative Babinski Present Gait: Normal Station and Gait Results & Data Vital Signs (Past 12 Hours) Vital Signs Temp Pulse Resp BP Pulse Ox O2 Del Method 07/29/25 14:17 36.6 C 66 20 126/84 97 Room Air 07/29/25 07:44 36.7 C 83 16 117/75 98 Room Air Laboratory Results WBC 7.10, hemoglobin 13.3, hematocrit 40.1, platelet count 326, sodium 140, pota ssium 3.9, creatinine 0.83, glucose 99, hemoglobin A1c 5.4, calcium 9.5, AST 14, ALT 15, triglycerides 137, cholesterol 222, LDL 134, HDL 61 Coding Level of Care Code 07300 INT INP/OBS CARE MIN Diagnoses Complicated migraine G43.109 Vertigo R42 Time Spent (min) 90 Comment Total time includes patient contact, chart review, counseling, note preparation
--- NOTE | 2025-07-30 07:56 | Hospitalist Progress Note ---
Date of Service July 30, 2025 Assessment & Plan (1) Expressive aphasia: (2) TIA (transient ischemic attack): (3) Hypothyroidism: Plan In summary this is a 44-year-old female who presents with transient expressive aphasia that has resolved at the time of arrival to the emergency department concerning for transient ischemic attack #Expressive aphasia // TIA versus Migrainous Patient presented with symptoms concerning of expressive aphasia that resolved at the time of arrival to the emergency department; last known well was in the evening of 07/26; comorbid risk factors include the patient's obesity; ABCD2 score of 2 (blood pressure and deficit) NIHSS score of 0; continues to endorse left arm paresthesia and weakness, but without objective evidence of this on exam; postural dizziness is also not able to be elicited with physical exam assessment and is not consequential of orthostasis; suspect these symptoms may be related to the missed doses of Wellbutrin at the start of their hospitalization versus complex migraine given their occurrence with headache onset on 07/28 - Continue aspirin 81 mg p.o. daily and hold clopidogrel 75 mg p.o. daily - A1c 5.7% - Lipid panel remarkable for elevated LDL and Triglycerides; hold atorvastatin 40 mg p.o. daily - In the absence of prescribed warfarin, consideration of the patient's age, and family history absent of thrombophilia we will not pursue coagulability testing at this time - MRI brain without contrast did not reveal intracranial pathology - No clear indication for intravenous fluids at this time - PT and OT consulted; no objective findings - Normal orthostatic vital signs - Neurology consulted 07/29; suggest her presenting condition and continued neurologic findings are most consistent with complex migraine rather than TIA; medication regimen adjusted as recommended by their consultation #Complex migraine // Dizziness Persistent headache with associated sense of feeling off balance, but without katerin vertiginous symptoms; suspect this is related to the patient's persistent migraine that has not resolved with abortive therapies - Continue acetaminophen 100 mg p.o. every 8 hours scheduled - Stop topiramate - Start Depakote ER 500 mg p.o. daily - Stop Sumatriptan - Start Rizatriptan 10 mg as needed for migraine abortive therapy - Neurology consulted for assistance with persistent dizziness #Acquired hypothyroidism Nonadherent with replacement therapy; discussed the risks of unmanaged hypothyroidism, though do not suspect this is contributing to their primary problem as untreated hypothyroidism does not manifest as focal neurologic deficits DVT PPx: Continue Lovenox 60 mg SQ daily GI PPx: Not indicated at this time Admission and Anticipated Discharge Date Admission Date: July 28, 2025 Subjective Ms. Montano is a 44-year-old female whose active medical conditions include chronic migraines with atypical neurologic symptoms, class III obesity, severe anxiety with episodic panic among other chronic medical conditions who presented to the [facility] on 07/27 due to difficulty with speech. No acute overnight events Review of Systems Review of Systems: Review of constitutional, cardiovascular, pulmonary, neurologic systems was unremarkable except for pertinent positive and negative findings discussed above Physical Exam Physical Exam: General: Adult female in no acute distress Vital Signs: Reviewed HEENT: Moist mucous membranes; pupils equally round and reactive to light; extraocular motion intact Pulmonary: Symmetric chest wall excursion without restriction; comfortable respiration Cardiovascular: Regular rate and rhythm without murmurs, rubs, or gallops; S1 and S2 normal; right radial pulse 2+; no notable lower extremity edema Neurologic: Cranial nerves II through XII intact; no discernible focal weakness; subjective slight paresthesia of the left upper extremity, sensation is intact; cerebellar assessment was unremarkable; speech is fluent, clear Results & Data Results & Data Vital Signs (Past 12 Hours) Vital Signs Temp Pulse Resp BP Pulse Ox O2 Del Method 07/29/25 22:28 36.8 C 61 16 148/79 H 97 Room Air PG Care Time/CCT Total # of Minutes Spent Total Time Spent with Patient: Total time spent is greater than 50% in coordination of care (as documented) at patient's floor/unit and/or counseling patient: Coding Level of Care Code 68214 SUB INP/OBS CARE 2/35MIN Diagnoses Expressive aphasia R47.01 TIA (transient ischemic attack) G45.9 Acquired hypothyroidism E03.9 Hypothyroidism type: acquired (3) Hypothyroidism Hypothyroidism type: acquired Qualified Code(s): E03.9 - Hypothyroidism, unspecified
[2025-07-30] MEDS: DIVALPROEX EXTENDED RELEASE 500 MG TAB PO SCH (08:45)
[2025-07-30] MEDS: SODIUM CHLORIDE 0.65% NA SOLN 45 ML (OCEAN) ONE (14:16)
[2025-07-30] MEDS: ONDANSETRON 4 MG OD TAB PO PRN (17:34)
[2025-07-31 07:39] VITALS: RESP 16; TEMP 97.9
[2025-07-31] MEDS: INFLUENZA VACC TS2025-26(6m+)/PF (IIV3) 0.5mL Syr IM ONE (08:37)
--- NOTE | 2025-07-31 09:16 | Ultrasound Report ---
Exam: Carotid duplex ultrasound. Exam reason: Vertiginous symptoms. Technique: Using a high-frequency transducer, real-time imaging of the carotid was obtained by a it architecture consultant. Findings: There is mild scattered atherosclerotic plaque formation noted throughout the arterial tree. The ICA/CCA ratio on the right is 0.54. The maximum peak systolic velocity of the ICA is 52 cm/sec. the ICA/CCA ratio on the left is 0.73. The maximum peak systolic velocity in the left ICA is 57 cm/sec. Impression: 1. The flow parameters are consistent with less than 50% stenosis bilaterally within the internal carotid arteries. Electronically signed by Giuseppe Nieves 07-31-2025 09:16 AM
--- NOTE | 2025-07-31 15:35 | Hospitalist Progress Note ---
Date of Service July 31, 2025 Assessment & Plan (1) Expressive aphasia: (2) TIA (transient ischemic attack): (3) Hypothyroidism: Plan In summary this is a 44-year-old female who presents with transient expressive aphasia that has resolved at the time of arrival to the emergency department concerning for transient ischemic attack. She continues to have difficulty coordinating discharge home. The patient has members of her [employer] who are watching her daughter while she remains hospitalized. They do not require acute hospitalization at this point, and this was conveyed to the patient as well as her "Godmother" who was available via telephone. The patient's electrical power, per her "Godmother", is not consistently on at this time for unclear reasons. They were both advised that the patient has no need to remain hospitalized at this time, and is of greater risk for progressive weakness and muscle atrophy while she remains here rather than returning to usual daily life. They will continue to search for a home for the patient to be discharged to this evening, but regardless the patient will be discharged tomorrow, 08/01. #Expressive aphasia // TIA versus Migrainous Patient presented with symptoms concerning of expressive aphasia that resolved at the time of arrival to the emergency department; last known well was in the evening of 07/26; comorbid risk factors include the patient's obesity; ABCD2 score of 2 (blood pressure and deficit) NIHSS score of 0; continues to endorse left arm paresthesia and weakness, but without objective evidence of this on exam; postural dizziness is also not able to be elicited with physical exam assessment and is not consequential of orthostasis; suspect these symptoms may be related to the missed doses of Wellbutrin at the start of their hospitalization versus complex migraine given their occurrence with headache onset on 07/28 - Continue aspirin 81 mg p.o. daily and hold clopidogrel 75 mg p.o. daily - A1c 5.7% - Lipid panel remarkable for elevated LDL and Triglycerides; hold atorvastatin 40 mg p.o. daily - In the absence of prescribed warfarin, consideration of the patient's age, and family history absent of thrombophilia we will not pursue coagulability testing at this time - MRI brain without contrast did not reveal intracranial pathology - No clear indication for intravenous fluids at this time - PT and OT consulted; no objective findings - Normal orthostatic vital signs - Neurology consulted 07/29; suggest her presenting condition and continued neurologic findings are most consistent with complex migraine rather than TIA; medication regimen adjusted as recommended by their consultation #Complex migraine // Dizziness Persistent headache with associated sense of feeling off balance, but without katerin vertiginous symptoms; suspect this is related to the patient's persistent migraine that has not resolved with abortive therapies - Continue acetaminophen 100 mg p.o. every 8 hours scheduled - Stop topiramate - Start Depakote ER 500 mg p.o. daily - Stop Sumatriptan - Start Rizatriptan 10 mg as needed for migraine abortive therapy - Neurology consulted for assistance with persistent dizziness #Acquired hypothyroidism Nonadherent with replacement therapy; discussed the risks of unmanaged hypothyroidism, though do not suspect this is contributing to their primary problem as untreated hypothyroidism does not manifest as focal neurologic deficits DVT PPx: Continue Lovenox 60 mg SQ daily GI PPx: Not indicated at this time Admission and Anticipated Discharge Date Admission Date: July 28, 2025 Subjective Ms. Montano is a 44-year-old female whose active medical conditions include chronic migraines with atypical neurologic symptoms, class III obesity, severe anxiety with episodic panic among other chronic medical conditions who presented to the [facility] on 07/27 due to difficulty with speech. No acute overnight events Review of Systems Review of Systems: Review of constitutional, cardiovascular, pulmonary, neurologic systems was unremarkable except for pertinent positive and negative findings discussed above Physical Exam Physical Exam: General: Adult female in no acute distress Vital Signs: Reviewed HEENT: Moist mucous membranes; pupils equally round and reactive to light; extraocular motion intact Pulmonary: Symmetric chest wall excursion without restriction; comfortable respiration Cardiovascular: Regular rate and rhythm without murmurs, rubs, or gallops; S1 a nd S2 normal; right radial pulse 2+; no notable lower extremity edema Neurologic: Cranial nerves II through XII intact; no discernible focal weakness; subjective slight paresthesia of the left upper extremity, sensation is intact; cerebellar assessment was unremarkable; speech is fluent, clear Results & Data Results & Data Vital Signs (Past 12 Hours) Vital Signs Temp Pulse Resp BP Pulse Ox O2 Del Method 07/31/25 07:39 36.6 C 67 16 112/73 94 Room Air PG Care Time/CCT Total # of Minutes Spent Total Time Spent with Patient: Total time spent is greater than 50% in coordination of care (as documented) at patient's floor/unit and/or counseling patient: Coding Level of Care Code 94009 SUB INP/OBS CARE Diagnoses Expressive aphasia R47.01 TIA (transient ischemic attack) G45.9 Acquired hypothyroidism E03.9 Hypothyroidism type: acquired (3) Hypothyroidism Hypothyroidism type: acquired Qualified Code(s): E03.9 - Hypothyroidism, unspecified
[2025-07-31 15:49] VITALS: BP 100/63; PULSE 83; O2SAT 93
--- NOTE | 2025-08-01 08:56 | Discharge Summary ---
Discharge Summary Date of Service July 31, 2025 Principal Dx & Hospital Course #1 = Principal Diagnosis (1) Expressive aphasia: (2) TIA (transient ischemic attack): (3) Hypothyroidism: Plan #Expressive aphasia // TIA versus Migrainous Patient presented with symptoms concerning of expressive aphasia that resolved at the time of arrival to the emergency department; last known well was in the evening of 07/26; comorbid risk factors include the patient's obesity; ABCD2 score of 2 (blood pressure and deficit) NIHSS score of 0; continues to endorse left arm paresthesia and weakness, but without objective evidence of this on exam; postural dizziness is also not able to be elicited with physical exam assessment and is not consequential of orthostasis; suspect these symptoms may be related to the missed doses of Wellbutrin at the start of their hospitalization versus complex migraine given their occurrence with headache onset on 07/28 - Continue aspirin 81 mg p.o. daily and hold clopidogrel 75 mg p.o. daily - A1c 5.7% - Lipid panel remarkable for elevated LDL and Triglycerides; hold atorvastatin 40 mg p.o. daily - In the absence of prescribed warfarin, consideration of the patient's age, and family history absent of thrombophilia we will not pursue coagulability testing at this time - MRI brain without contrast did not reveal intracranial pathology - No clear indication for intravenous fluids at this time - PT and OT consulted; no objective findings - Normal orthostatic vital signs - Neurology consulted 07/29; suggest her presenting condition and continued neurologic findings are most consistent with complex migraine rather than TIA; medication regimen adjusted as recommended by their consultation #Complex migraine // Dizziness Persistent headache with associated sense of feeling off balance, but without katerin vertiginous symptoms; suspect this is related to the patient's persistent migraine that has not resolved with abortive therapies - Continue acetaminophen 100 mg p.o. every 8 hours scheduled - Stop topiramate - Continue Depakote ER 500 mg p.o. daily - Stop Sumatriptan - Continue Rizatriptan 10 mg as needed for migraine abortive therapy - Neurology consulted for assistance with persistent dizziness #Acquired hypothyroidism Nonadherent with replacement therapy; discussed the risks of unmanaged hypothyroidism, though do not suspect this is contributing to their primary problem as untreated hypothyroidism does not manifest as focal neurologic deficits Notes For Next Care Provider Medication Changes From Visit Stop topiramate Stop Sumatriptan Start ASA 81 mg for 21 days Start Atorvastatin 40 mg p.o. daily Start Depakote ER 500 mg p.o. daily Start Rizatriptan 10 mg as needed for migraine abortive therapy Admission HPI Per Admitting Provider Ms. Montano is a 44-year-old female whose active medical conditions include chronic migraines with atypical neurologic symptoms, class III obesity, severe anxiety with episodic panic among other chronic medical conditions who presented to the [facility] on 07/27 due to difficulty with speech. The patient's last known normal was in the evening on 07/26. Upon awaking on 07/27, she attempted to speak with her son, but was unable to express any speech; she denies any difficulty with thinking of the words to say, just with expressing nonverbally. She denies any additional neurologic deficits present at the time of this symptom. She has never experienced symptoms like this previously. She does have a history of migraines with atypical neurologic symptoms, but has no associated migraine at this time. The patient denies focal motor weakness, paresthesia, dysphagia, dysarthria, loss of bowel or bladder continence, vision changes, double vision, difficulty with balance, recent head injuries, initiation or adjustment of medications. Discharge Exam General: Adult female in no acute distress Vital Signs: Reviewed HEENT: Moist mucous membranes; pupils equally round and reactive to light; extraocular motion intact Pulmonary: Symmetric chest wall excursion without restriction; comfortable respiration Cardiovascular: Regular rate and rhythm without murmurs, rubs, or gallops; S1 and S2 normal; right radial pulse 2+; no notable lower extremity edema Neurologic: Cranial nerves II through XII intact; no discernible focal weakness; subjective slight paresthesia of the left upper extremity, sensation is intact; cerebellar assessment was unremarkable; speech is fluent, clear Discharge Plan Discharge Items Patient Disposition: Home - Self-Care Reason For Visit: TIA vs Complex migrainosus Discharge Diagnosis: TIA Condition on Discharge: Fair Activity: Per Instructions section Non-emergency contact: Primary Care Provider Call non-emergency contact if: you have any medication questions and your symptoms worsen Follow-up/Referrals: Yuri Byrnes DO [Primary Care Provider] - 08/09/25 11:00 am Diet: Low Fat Ambulatory Orders: CA echo transthoracic complete (Routine) Timeframe: 1 Month Location: Determined by Patient Ordered By: Shamir Rodriguez Add Attending Provider Instructions: You were admitted to [facility] for transient expressive aphasia concerning for transient ischemic attack. With regard to your presenting symptoms; these resolved around the time of arrival to the emergency department; CT head without contrast and MRI brain without contrast did not reveal any obvious ischemic injury. Further risk assessment including a hemoglobin A1c and fasting lipid profile were obtained; the latter was remarkable for an elevated LDL as well as triglycerides. A transthoracic echocardiogram was not pursued given the lack of evidence for any embolic phenomenon that would have caused this episode. We recommend continuation of aspirin 81 mg p.o. daily and atorvastatin 40 mg p.o. daily. Due to persistent dizziness and associated headache, further consideration was had for the possibility of complex migrainosus as a contributing cause to your symptoms. Neurology was consulted due to difficulty with controlling your breakt hrough symptoms with medication recommendations as follows: - Discontinue Topiramate and Sumatriptan - Start Depakote ER 500 mg p.o. daily - Start Rizatriptan 10 mg p.o. as needed for migraine abortive therapy - Follow up in 2-3 weeks with [facility] If your symptoms recur, we recommend presentation to the emergency department for repeat evaluation. Thank you for choosing [facility] as your healthcare provider. Pending Studies at Discharge: No Stand-Alone Forms: My [facility], Work/School Release Medications and DC Order Prescriptions: New atorvastatin 40 mg Tablet 40 mg PO QAM 30 Days Qty: 30 0RF aspirin 81 mg Tablet,Delayed Release (Dr/Ec) 81 mg PO QAM 20 Days Qty: 20 0RF divalproex [Depakote ER] 500 mg tablet extended release 24 hr 500 mg PO DAILY 30 Days Qty: 30 0RF rizatriptan 10 mg tablet See Rx Instructions .ROUTE .COMPLEX Qty: 10 0RF Rx Instructions: take 1 tab at onset of headache; if no relief may repeat 1 tab after at least 2 hrs; max = 3 tabs/24 hr Continued levothyroxine 175 mcg tablet 175 mcg PO DAILYBB cetirizine 10 mg tablet 10 mg PO DAILY PRN (Reason: Allergy Symptoms) cyanocobalamin (vitamin B-12) 1,000 mcg/mL solution 1,000 mcg IM WK Rx Instructions: SUNDAYS epinephrine 0.3 mg/0.3 mL auto-injector 0.3 mg IM DIRECTED PRN (Reason: Allergic Reaction) cholecalciferol (vitamin D3) [Vitamin D3] 25 mcg (1,000 unit) Capsule 0 mcg PO DAILY Rx Instructions: PT UNSURE OF STRENGTH bupropion HCl 300 mg tablet extended release 24 hr 300 mg PO HS quetiapine 50 mg tablet 50 mg PO HS fluticasone furoate-vilanterol [Breo Ellipta] 100-25 mcg/dose Blister With Device 1 inh INHALATION DAILY montelukast 10 mg tablet 10 mg PO DAILY promethazine 25 mg tablet 25 mg PO Q6H PRN (Reason: nausea and vomiting) Qty: 10 0RF Held celecoxib 100 mg capsule 100 mg PO BID PRN (Reason: pain) Qty: 60 0RF Hold Instructions: Resume on 08/17/25. You may resume after completing your course of aspirin and clopidogrel Discontinued sumatriptan succinate 25 mg tablet 25 mg PO DIRECTED PRN (Reason: Migraine Headache) clonazepam 1 mg tablet 1 mg PO DAILY PRN (Reason: Anxiety) topiramate 100 mg tablet 100 mg PO DAILY fluticasone propionate [Flonase] 50 mcg/actuation Burson,Suspension 2 spray INTRANASAL DAILY Rx Instructions: administer into each nostril phenazopyridine [Pyridium] 200 mg tablet 200 mg PO Q8H PRN (Reason: pain) Qty: 6 0RF Discharge Orders: Discharge Order (Routine); Ordered 07/31/25 Ordered By: Shamir Romo/Other Patient Handouts: Valproate Extended Release Oral Tablet Admission Data Admit Date/Time: 07/28/25 16:57 Attending Provider: Shamir Rodriguez Admit Provider: Shamir Rodriguez Primary Care Provider: Yuri Byrnes Other Providers: José Olivier Other Interventions: Discharge Summary Assessment (RN) Last Done: 07/31/25 10:17 Hospital Stay Data Consultations 07/27/25 11:06 ED Decision to Admit Stat 07/29/25 13:36 Consult Neurology Routine Diagnostic Imagining Performed 07/27/25 07:20 CT head/brain wo con Stat 07/27/25 11:07 MRI Brain [MR brain wo con] Routine 07/30/25 07:52 Carotid duplex [US carotid doppler BI] Routine Pending Results Patient Have Any Pending Studies at Discharge: No Discharge Instructions Given to Patient (Per Discharging Provider) You were admitted to [facility] for transient expressive aphasia concerning for transient ischemic attack. With regard to your presenting symptoms; these resolved around the time of arrival to the emergency department; CT head without contrast and MRI brain without contrast did not reveal any obvious ischemic injury. Further risk assessment including a hemoglobin A1c and fasting lipid profile were obtained; the latter was remarkable for an elevated LDL as well as triglycerides. A transthoracic echocardiogram was not pursued given the lack of evidence for any embolic phenomenon that would have caused this episode. We recommend cont inuation of aspirin 81 mg p.o. daily and atorvastatin 40 mg p.o. daily. Due to persistent dizziness and associated headache, further consideration was had for the possibility of complex migrainosus as a contributing cause to your symptoms. Neurology was consulted due to difficulty with controlling your breakthrough symptoms with medication recommendations as follows: - Discontinue Topiramate and Sumatriptan - Start Depakote ER 500 mg p.o. daily - Start Rizatriptan 10 mg p.o. as needed for migraine abortive therapy - Follow up in 2-3 weeks with [facility] If your symptoms recur, we recommend presentation to the emergency department for repeat evaluation. Thank you for choosing [facility] as your healthcare provider. Total Time Total Time Spent Total Time Spent (In Minutes): I personally spent 90 minutes in the coordination of this patient's discharge including bedside counselling, physical exam, medication reconciliation and coordination of DME in addition to follow up care coordination with ambulatory case management Coding Level of Care Code 60132 INP/OBS DISCH >30 MIN Diagnoses Expressive aphasia R47.01 TIA (transient ischemic attack) G45.9 Acquired hypothyroidism E03.9 Hypothyroidism type: acquired
== END 2025-07-31 16:37 | disposition home or self-care (01) | DRG 103 ==
LOC: ED 06:09 → EDINP 06:09 → 3N 15:45

== ENCOUNTER 2025-08-08 11:22 | Observation (INO) ==
[2025-08-08] MEDS: PLASMA-LYTE A 1,000 ML IV ONE (12:19)
[2025-08-08 12:34] LABS: Hematocrit (blood only) 40.5 % (37.0-47.0); Hemoglobin 13.7 g/dL (12.0-16.0); Immature Granulocytes # (auto) 0.05 K/uL (0.01-0.20); Immature Granulocytes % (auto) 0.7 %; Mean Corpuscular Hemoglobin 29.5 pg (25.0-34.0); Mean Corpuscular Volume 87.3 fL (80.0-100.0); Platelet Count 313 K/uL (130-400); RDW Standard Deviation 41.1 fL (36.4-46.3); Red Blood Count 4.64 M/uL (4.20-5.40); White Blood Count 7.36 K/ul (4.8-10.8)
[2025-08-08 12:53] LABS: Alanine Aminotransferase 12 U/L (7-52); Albumin Globulin Ratio 1.2 (0.9-2); Albumin Level 4.2 gm/dl (3.4-5.0); Alkaline Phosphatase 72 U/L (34-104); Anion Gap 6 (3-11); Bilirubin,Total 0.3 mg/dl (0.2-1.0); Blood Urea Nitrogen 15 mg/dl (6-23); Calcium 9.3 mg/dl (8.6-10.3); Carbon Dioxide 29 mmol/L (21-32); Chloride 104 mmol/L (98-107); Creatinine Clr Calc Pharmacy 112.8 ml/min; Globulin 3.6 gm/dl (2.5-4.0); Glucose 101 mg/dl (70-99(Fasting)); Magnesium 1.8 mg/dl (1.7-2.4); Potassium 4.1 mmol/L (3.5-5.1); Sodium 139 mmol/L (136-145); Total Protein 7.8 gm/dl (6.0-8.3)
[2025-08-08 13:08] LABS: INR 1.0 (0.9-1.1); Partial Thromboplastin Time 27 Seconds (21-31); Prothrombin Time 10.9 Seconds (9.0-12.0)
--- NOTE | 2025-08-08 13:38 | Emergency Department Note ---
Impression & Plan Vertigo, Ambulatory dysfunction ED Provider Note NAME: AMBER VICKERS AGE: 45 SEX: F : 1980 ARRIVES VIA: Walk-In INFORMANT: Patient, daughter ED PROVIDER(S): Guerrero Maxwell DO CHIEF COMPLAINT: vertigo HPI: This is a 45-year-old female with the PMHx of migraines, anxiety, hypothyroidism presenting to [facility] for further evaluation of ongoing vertiginous symptoms. Patient is accompanied by per daughter who provide additional history. Patient reports ongoing dizziness and lightheadedness that seems to be positional. Patient reporting that her symptoms do occur at rest. She states she was recently admitted for similar episode. She states that she is unable to ambulate due to severe symptoms. She states that she has to use a walker. She is struggling to perform her occupation and take care of her family. Patient states that she was told that this could be a complex migraine but she has never had any migraine symptoms with current episodes. Symptoms started to again worsen just prior to Thanksgiving. They deny fever or chills. No cough or congestion. Denies chest pain or palpitations. No shortness of breath. They deny abdominal pain, nausea and vomiting. No urinary complaints. No recent changes in bowel movements. Patient denies recent changes in medications or OTC supplements. Patient offers no other complaints, today. ADDITIONAL HISTORY OBTAINED: Per HPI Chronic Medical/Social Conditions Affecting Care: Per HPI PAST MEDICAL HISTORY: See Below PAST SURGICAL HISTORY: See Below FAMILY HISTORY: See Below SOCIAL HISTORY: See Below HOME MEDICATIONS: See Below ALLERGIES: See Below VITALS: See Below PHYSICAL EXAMINATION: GENERAL: Sitting up in bed, alert, well appearing, well nourished, no distress, non-toxic EYE EXAM: normal conjunctiva. PERRL and EOM's grossly intact. OROPHARYNX: no exudate, no erythema, lips, buccal mucosa, and tongue normal and mucous membranes are moist NECK: supple, no nuchal rigidity, no adenopathy, non-tender LUNGS: Clear to auscultation. Normal chest wall mechanics HEART: no murmurs, regular rate, regular rhythm ABDOMEN: abdomen soft, non-tender, no masses, no rebound or guarding. BACK: Back is symmetrical on inspection and there is no deformity, no midline tenderness, no CVA tenderness. SKIN: no rashes and no bruising UPPER EXTREMITIES: upper extremities are grossly normal. LOWER EXTREMITIES: No pitting edema. NEURO EXAM: Normal sensorium, GCS 15, normal speech, no gross weakness of arms, no gross weakness of legs. No drift. Finger to nose intact. Gross sensation intact. MEDICAL DECISION MAKING: Differential diagnoses includes but not limited to peripheral vertigo, orthostatic hypotension, migraines, electrolyte derangements, dehydration In summary, this is a 45 year old female who presented with vertiginous symptoms. Differential as above. Nursing notes and pertinent past medical records reviewed. Vital signs reviewed and the patient is afebrile and hemodynamically stable. History and presentation revealed ongoing vertiginous symptoms. Patient had a recent admission with extensive imaging and workup. I reviewed imaging from prior visit including CT head and MRI brain. Patient had negative workup. Thought to be related to a migraine or possible peripheral vertigo. Do feel this is likely the combination again today. Physical examination revealed neurovascularly intact examination. As a result of my initial evaluation, IV access was established and the patient was placed on CCRM. Therapeutics ordered include IVFR and valium. Diagnostics interpreted by me include EKG and cardiac monitoring as listed below: -Cardiac Monitoring: An order was placed for continuous cardiac monitoring. The monitor shows a rate of 70-100s with regular rhythm. -ECG: Normal sinus rhythm at a ventricular rate of [address] segment changes to suggest STEMI. Intervals are within normal limits. Patient completed laboratory studies and imaging. Results independently interpreted by me are no leukocytosis or anemia. There is no significant electrolyte derangements or significant kidney dysfunction from baseline. No changes in LFTs. Normal troponin. The patient was managed with IV fluid resuscitation and Valium. No improvement in her symptoms. Patient has a significant concern regarding safety as she is unable to have significant performance in her occupation as well as ADLs. Patient barely able to walk. I did offer the patient outpatient management and follow-up but she felt that this would be unsafe. Patient is requesting inpatient management. Will touch base with the hospitalist team for possible admission for ongoing vertiginous symptoms and ambulatory dysfunction. Case was discussed with Dr. Bahena and she was agreeable to admit the patient. Based on the above, including the patient's age, coexisting illnesses, labs, imaging, and exam findings the decision to treat as an inpatient. I discussed the patient with the hospitalist team who recommended admission to their services. They received the medications, treatments, interventions indicated above and their condition remained stable. I discussed my findings with the patient and their family and they understand and agree with the treatment plan. All patient / family questions were answered to their satisfaction. Consults/Care Managements Discussions: Per MDM ER treatment provided: See above Procedures:none Critical Care: None The chart was completed utilizing [employer] Speech voice recognition software. Grammatical errors, random word insertions, pronoun errors, and incomplete sentences are an occasional consequence of this system due to software limitations, ambient noise, and hardware issues. Any formal questions or concerns about the content, text, or information contained within the body of this dictation should be directly addressed to the physician for clarification. Past Med/Surg History Problem List (Updated 08/09/25 @ 17:05 by Guerrero Maxwell DO) Ambulatory dysfunction (Acute) Vertigo (Acute) Vertigo Complicated migraine Dizziness (Acute) Facial tingling (Acute) Confusion (Acute) Generalized anxiety disorder with panic attacks Hypothyroidism (Chronic) Migraine headache (Chronic) Medical History (Updated 08/09/25 @ 17:05 by Guerrero Maxwell DO) TIA (transient ischemic attack) Expressive aphasia Surgical History (Updated 08/08/25 @ 21:48 by Chelsy Bahena MD) H/O: hysterectomy Family History (Updated 08/08/25 @ 21:48 by Chelsy Bahena MD) Other Family history non-contributory Social History Smoking Status: Former smoker Tobacco Type: Cigarettes packs per day: 0; Second Hand Exposure: No; Do You Dip or Chew Tobacco: No; Hx Alcohol Use: Yes Alcohol type: beer, wine and hard liquor Hx Substance Use: No Preferred Language: Welsh Communication Ability: Effective Centrifugal Wax Molder Required: No Beliefs That Will Affect Care: None marital status: Single Current Living Situation: Family Current Living Situation Comment: daughter current occupational status: employed Feels Safe at Home: Yes Safety Concerns: Feels Safe At This Time Assistive Devices: Walker Allergies Allergies Allergy/AdvReac Type Severity Reaction Status Date / Time bee venom protein (honey bee) Allergy Severe Anaphylaxis Verified 08/02/25 11:07 Penicillins Allergy Severe Anaphylaxis Verified 08/02/25 11:07 tree and shrub pollen Allergy Unknown Unknown Verified 08/02/25 11:07 Iodinated Contrast Media Allergy Anaphylaxis Verified 08/02/25 11:07 buspirone [From BuSpar] AdvReac Intermediate Dizziness Verified 08/02/25 11:07 cyclobenzaprine AdvReac Intermediate Dizziness Verified 08/02/25 11:07 [From Flexeril] fluoxetine [From Prozac] AdvReac Intermediate Dizziness Verified 08/02/25 11:07 Home Meds Home Medications Medication Instructions Recorded Confirmed bupropion HCl 300 mg 24 hr tablet, 300 mg PO HS 05/19/25 08/08/25 extended release cholecalciferol (vitamin D3) 25 1,000 mcg PO DAILY 05/19/25 08/08/25 mcg (1,000 unit) capsule (Vitamin D3) cyanocobalamin (vitamin B-12) 1,000 mcg IM WK 05/19/25 08/08/25 1,000 mcg/mL injection solution epinephrine 0.3 mg/0.3 mL 0.3 mg IM DIRECTED PRN Allergic 05/19/25 08/08/25 injection, auto-injector Reaction fluticasone furoate 100 1 inh inhalation DAILY 05/19/25 08/08/25 mcg-vilanterol 25 mcg/dose inhalation powder (Breo Ellipta) quetiapine 50 mg tablet 50 mg PO HS 05/19/25 08/08/25 clopidogrel 75 mg tablet 75 mg PO QAM 08/08/25 08/08/25 levothyroxine 175 mcg tablet 175 mcg PO QAM 08/08/25 08/08/25 rizatriptan 10 mg tablet 10 mg PO ONCE PRN Migraine Headache 08/08/25 08/08/25 Previous Rx's Medication Instructions Recorded celecoxib 100 mg capsule 100 mg PO BID PRN pain #60 caps 04/21/25 aspirin 81 mg tablet,delayed 81 mg PO QAM 20 days #20 tabs 07/28/25 release divalproex 500 mg tablet,extended 500 mg PO DAILY 30 days #30 tabs 07/30/25 release 24 hr (Depakote ER) Results & Data (ED) Vital Signs Vital Signs - 24 hr 08/08/25 11:34 08/08/25 12:11 08/08/25 12:11 Temperature 36.2 C L Temperature Source Temporal Artery Scan Pulse Rate 104 H Pulse Rate [Right Finger] 85 Respiratory Rate 19 16 Respiratory Effort / Characteristics Non-Labored Spontaneous Non-Labored Spontaneous Respiratory Depth Normal Respiratory Pattern Regular Blood Pressure 123/85 Blood Pressure [Right Arm] 116/84 Blood Pressure Mean 97 Blood Pressure Mean [Right Arm] 94 Pulse Oximetry 96 86 L 95 Oxygen Delivery Method Room Air Room Air Room Air Sepsis Recent Fever Within 48 Hours No Sepsis New/Unexplained Change in Mental Status N/A Sepsis Action Taken by Nursing No Action Required 08/08/25 12:27 Temperature Temperature Source Pulse Rate 91 H Pulse Rate [Right Finger] Respiratory Rate Respiratory Effort / Characteristics Respiratory Depth Respiratory Pattern Blood Pressure Blood Pressure [Right Arm] Blood Pressure Mean Blood Pressure Mean [Right Arm] Pulse Oximetry Oxygen Delivery Method Sepsis Recent Fever Within 48 Hours Sepsis New/Unexplained Change in Mental Status Sepsis Action Taken by Nursing Laboratory Data 08/08/25 11:58 08/09/25 06:35 Lab Results 08/08/25 Range/Units 11:58 WBC 7.36 (4.8-10.8) K/ul RBC 4.64 (4.20-5.40) M/uL Hgb 13.7 (12.0-16.0) g/dL Hct 40.5 (37.0-47.0) % MCV 87.3 (80.0-100.0) fL MCH 29.5 (25.0-34.0) pg MCHC 33.8 (32.0-36.0) g/dL RDW Std Deviation 41.1 (36.4-46.3) fL RDW Coeff of Estuardo 13.2 (11.5-14.5) % Plt Count 313 (130-400) K/uL MPV 9.2 L (9.4-12.4) fL Immature Gran % (Auto) 0.7 % Neut % (Auto) 65.7 % Lymph % (Auto) 21.6 % Platte % (Auto) 7.1 % Eos % (Auto) 4.2 % Baso % (Auto) 0.7 % Neut # (Auto) 4.84 (1.40-6.50) K/uL Lymph # (Auto) 1.59 (1.20-3.40) K/uL Platte # (Auto) 0.52 (0.11-0.59) K/uL Eos # (Auto) 0.31 (0.00-0.50) K/uL Baso # (Auto) 0.05 (0.00-0.20) K/uL Immature Gran # (Auto) 0.05 (0.01-0.20) K/uL PT 10.9 (9.0-12.0) Seconds INR 1.0 (0.9-1.1) APTT 27 (21-31) Seconds PTT Ratio 1.0 Sodium 139 (136-145) mmol/L Potassium 4.1 (3.5-5.1) mmol/L Chloride 104 (98-107) mmol/L Carbon Dioxide 29 (21-32) mmol/L Anion Gap 6 (3-11) BUN 15 (6-23) mg/dl Creatinine 0.81 (0.6-1.2) mg/dl Est Cr Clr Drug Dosing 112.8 ml/min eGFR 90.61 BUN/Creatinine Ratio 18.5 (10-20) Glucose 101 H (70-99(Fasting)) mg/dl Calcium 9.3 (8.6-10.3) mg/dl Magnesium 1.8 (1.7-2.4) mg/dl Total Bilirubin 0.3 (0.2-1.0) mg/dl AST 11 L (13-39) U/L ALT 12 (7-52) U/L Alkaline Phosphatase 72 (34-104) U/L Troponin I High Sens < 2.3 (0-14) pg/ml Total Protein 7.8 (6.0-8.3) gm/dl Albumin 4.2 (3.4-5.0) gm/dl Globulin 3.6 (2.5-4.0) gm/dl Albumin/Globulin Ratio 1.2 (0.9-2) Administered Medications Acetaminophen (Acetaminophen 325 Mg Tab) 650 mg PO Q4H PRN PRN Reason: pain/fever Stop: 09/07/25 18:10 Last Admin: 08/09/25 15:44 Dose: 650 mg Documented By: Admin: 08/09/25 07:36 Dose: 650 mg Documented By: RICKEY Aspirin (Aspirin 81 Mg Ectab) 81 mg PO [facility] Stop: 09/08/25 08:59 Last Admin: 08/09/25 09:15 Dose: 81 mg Documented By: RICKEY Bupropion HCl (Bupropion Xl 300 Mg Tabcr) 300 mg PO [facility] Stop: 09/07/25 20:59 Last Admin: 08/08/25 21:06 Dose: 300 mg Documented By: CHRISSY Clopidogrel Bisulfate (Clopidogrel Bisulfate 75 Mg Tab) 75 mg PO [facility] Stop: 09/08/25 08:59 Last Admin: 08/09/25 09:15 Dose: 75 mg Documented By: RICKEY Divalproex Sodium (Divalproex Extended Release 500 Mg Tab) 1,000 mg PO DAILY [facility]IE Stop: 09/08/25 08:59 Last Admin: 08/09/25 09:15 Dose: 1,000 mg Documented By: RICKEY Enoxaparin Sodium (Enoxaparin Inj 40 Mg/0.4 Ml Syr) 40 mg SQ Q12H [facility] Stop: 09/07/25 19:59 Last Admin: 08/09/25 09:16 Dose: 40 mg Documented By: Admin: 08/08/25 21:02 Dose: 40 mg Documented By: CHRISSY Fluticasone/Vilanterol (Fluticasone/Vilanterol 100/25mcg 14 Puffs/Inhaler) 1 puffs INH DAILY GRACIE Stop: 09/08/25 08:59 Last Admin: 08/09/25 09:16 Dose: 1 puffs Documented By: RICKEY Methylprednisolone 60 mg/ (Syringe) 0.96 mls @ 1.5 mls/min IV Q12H [facility] Stop: 09/08/25 04:59 Last Admin: 08/09/25 16:46 Dose: 1.5 mls/min Documented By: Admin: 08/09/25 05:24 Dose: 1.5 mls/min Documented By: NU Levothyroxine Sodium (Levothyroxine Sodium 175 Mcg Tablet) 175 mcg PO DAILYBB [facility] Stop: 09/08/25 06:29 Last Admin: 08/09/25 06:07 Dose: 175 mcg Documented By: NU Quetiapine Fumarate (Quetiapine Fumarate 25 Mg Tablet) 50 mg PO HS [facility] Stop: 09/07/25 20:59 Last Admin: 08/08/25 21:05 Dose: 50 mg Documented By: CHRISSY Verapamil HCl (Verapamil Hcl 120 Mg Tabcr) 120 mg PO HS [facility] Stop: 09/07/25 20:59 Last Admin: 08/08/25 21:06 Dose: 120 mg Documented By: CHRISSY Vitamin D (Cholecalciferol 25 Mcg (1000 Units) Tab) 25 mcg PO DAILY [facility] Stop: 09/08/25 08:59 Last Admin: 08/09/25 09:15 Dose: 25 mcg Documented By: RICKEY Discontinued Medications Acetaminophen (Acetaminophen 500 Mg Tab) 1,000 mg PO NOW STA Stop: 08/08/25 18:00 Last Admin: 08/08/25 18:14 Dose: 1,000 mg Documented By: OSCAR Diazepam (Diazepam Inj 5 Mg/Ml 2 Ml Carp) 5 mg IV NOW STA Stop: 08/08/25 12:09 Last Admin: 08/08/25 12:19 Dose: 5 mg Documented By: QGV Divalproex Sodium (Divalproex Extended Release 500 Mg Tab) 500 mg PO NOW ONE Stop: 08/08/25 16:10 Last Admin: 08/08/25 16:31 Dose: 500 mg Documented By: CC Parenteral Electrolytes (Plasma-Lyte A Ph 7.4) 1,000 mls @ 999 mls/hr IV .Q1H1M ONE Stop: 08/08/25 13:08 Last Infusion: 08/08/25 19:50 Dose: Infused Documented By: Admin: 08/08/25 12:19 Dose: 999 mls/hr Documented By: QGV Lactated Ringer's (Lr) 1,000 mls @ 125 mls/hr IV .Q8H GRACIE Stop: 08/09/25 10:10 Last Infusion: 08/09/25 14:09 Dose: Infused Documented By: Admin: 08/09/25 05:24 Dose: 125 mls/hr Documented By: Infusion: 08/09/25 03:53 Dose: Infused Documented By: Admin: 08/08/25 19:53 Dose: 125 mls/hr Documented By: CHRISSY Magnesium Sulfate/Dextrose (Magnesium Sulfate / D5w) 1 gm in 100 mls @ 50 mls/hr IV ONE ONE Stop: 08/09/25 12:14 Last Infusion: 08/09/25 13:24 Dose: Infused Documented By: Admin: 08/09/25 11:22 Dose: 50 mls/hr Documented By: RICKEY Methylprednisolone (Methylprednisolone 125 Mg/2 Ml Vial) 125 mg IV NOW STA Stop: 08/08/25 16:10 Last Admin: 12/01/25 16:31 Dose: 125 mg Documented By: CC Discharge Plan Visit Data Chief Complaint: Dizziness Stated Complaint: DIZZINESS, REF BY DOC ED Provider: Guerrero Maxwell Discharge Problem: Vertigo, Ambulatory dysfunction Patient Disposition: Admitted As Inpatient Condition: Fair Discharge Instructions Interventions: ED Discharge Assessment Last Done: 08/08/25 21:19
--- NOTE | 2025-08-08 15:09 | History & Physical Report ---
Date of Service August 08, 2025 Assessment & Plan (1) Complicated migraine: (2) Vertigo: (3) Generalized anxiety disorder with panic attacks: Plan This patient is a 45-year-old female with a history of migraine headaches, hypothyroidism, anxiety disorder, with recent admission from 07/27/2025- 08/01/2025 for TIA versus complex migraine, who presents as a readmission for persistent dizziness. She reports that ever since she returned home 1 week prior, she has had daily persistent dizziness like the room is spinning around her. She did not have a headache after she returned home but does report a headache today. Denies fevers or chills, no cough or cold symptoms, no chest p ain or shortness of breath, no nausea or vomiting or abdominal pain or diarrhea. She reports that the only time the dizziness goes away is when she is sleeping but as soon as she wakes up and gets out of bed in the morning it returns. She has had difficulty walking, caring for her children, and working. There is nothing that she has tried to make it better. She has been taking the Depakote as prescribed last admission as well as dual antiplatelet therapy and atorvastatin for possible TIA. In the ED, her vital signs were normal, her laboratory workup was normal. She will be admitted for persistent vertigo possibly due to complex migraine versus peripheral vertigo, with ambulatory dysfunction. #Vertigo/complex migraine-persistent, daily, for over 1 week despite taking Depakote. She recently stopped her Topamax and sumatriptan during last admission. Last admission she was worked up for stroke and had a negative MRI of the brain, negative carotid ultrasound, but did not have CT angiograms due to her IV contrast dye allergy. She was started on dual antiplatelet therapy and atorvastatin at that time as well as started on Depakote. Symptoms have persis amelia. I discussed her case with the neurologist on-call who actually also saw her last week - Admit to medical/surgical unit - Give 2 L of LR for IV fluids - Start corticosteroids with Solu-Medrol 125 mg IV x 1 followed by 60 mg IV every 12 to break the cycle of migraine - Increase Depakote ER to 1000 mg p.o. daily - Start verapamil 120 mg p.o. at bedtime for migraine prevention - Give Reglan and Benadryl migraine cocktail as needed every 6 hours. Tylenol as needed for headache as well - Okay to continue aspirin, Plavix, atorvastatin but doubtful that she had a TIA last admission - Check MRA head and neck - Follow BMP, magnesium in the a.m. #Hypothyroidism-no recent TSH in this laboratory system - Check TSH - Continue home levothyroxine #Anxiety disorder-no acute issues - Continue home bupropion, Seroquel DVT prophylaxis-SQ Lovenox, SCDs Disposition-admit to medical/surgical unit History of Present Illness Chief Complaint: Dizziness Primary Care Provider: Yuri Byrnes, This patient is a 45-year-old female with a history of migraine headaches, hypothyroidism, anxiety disorder, with recent admission from 07/27/2025-10/01/2024 for TIA versus complex migraine, who presents as a readmission for persistent dizziness. She reports that ever since she returned home 1 week prior, she has had daily persistent dizziness like the room is spinning around her. She did not have a headache after she returned home but does report a headache today. Denies fevers or chills, no cough or cold symptoms, no chest pain or shortness of breath, no nausea or vomiting or abdominal pain or diarrhea. She reports that the only time the dizziness goes away is when she is sleeping but as soon as she wakes up and gets out of bed in the morning it returns. She has had difficulty walking, caring for her children, and working. There is nothing that she has tried to make it better. She has been taking the Depakote as prescribed last admission as well as dual antiplatelet therapy and atorvastatin for possible TIA. In the ED, her vital signs were normal, her laboratory workup was normal. She will be admitted for persistent vertigo possibly due to complex migraine versus peripheral vertigo, with ambulatory dysfunction. Allergies Allergy/AdvReac Type Severity Reaction Status Date / Time bee venom protein (honey bee) Allergy Severe Anaphylaxis Verified 08/02/25 11:07 Penicillins Allergy Severe Anaphylaxis Verified 08/02/25 11:07 tree and shrub pollen Allergy Unknown Unknown Verified 08/02/25 11:07 Iodinated Contrast Media Allergy Anaphylaxis Verified 08/02/25 11:07 buspirone [From BuSpar] AdvReac Intermediate Dizziness Verified 08/02/25 11:07 cyclobenzaprine AdvReac Intermediate Dizziness Verified 08/02/25 11:07 [From Flexeril] fluoxetine [From Prozac] AdvReac Intermediate Dizziness Verified 08/02/25 11:07 Home Medications Medication Instructions Recorded Confirmed Type celecoxib 100 mg capsule 100 mg PO BID PRN pain #60 caps 04/21/25 08/08/25 Rx bupropion HCl 300 mg 24 hr tablet, 300 mg PO HS 05/19/25 08/08/25 History extended release cholecalciferol (vitamin D3) 25 1,000 mcg PO DAILY 05/19/25 08/08/25 History mcg (1,000 unit) capsule (Vitamin D3) cyanocobalamin (vitamin B-12) 1,000 mcg IM WK 05/19/25 08/08/25 History 1,000 mcg/mL injection solution epinephrine 0.3 mg/0.3 mL 0.3 mg IM DIRECTED PRN Allergic 05/19/25 08/08/25 History injection, auto-injector Reaction fluticasone furoate 100 1 inh inhalation DAILY 05/19/25 08/08/25 History mcg-vilanterol 25 mcg/dose inhalation powder (Breo Ellipta) quetiapine 50 mg tablet 50 mg PO HS 05/19/25 08/08/25 History aspirin 81 mg tablet,delayed 81 mg PO QAM 20 days #20 tabs 07/28/25 08/08/25 Rx release divalproex 500 mg tablet,extended 500 mg PO DAILY 30 days #30 tabs 07/30/25 08/08/25 Rx release 24 hr (Depakote ER) clopidogrel 75 mg tablet 75 mg PO QAM 08/08/25 08/08/25 History levothyroxine 175 mcg tablet 175 mcg PO QAM 08/08/25 08/08/25 History rizatriptan 10 mg tablet 10 mg PO ONCE PRN Migraine Headache 08/08/25 08/08/25 History Past Med/Surg History Problem List Vertigo Complicated migraine Dizziness (Acute) Facial tingling (Acute) Confusion (Acute) Generalized anxiety disorder with panic attacks Hypothyroidism (Chronic) Migraine headache (Chronic) Medical History TIA (transient ischemic attack) Expressive aphasia Surgical History (Updated 08/08/25 @ 21:48 by Chelsy Bahena MD) H/O: hysterectomy Family History (Updated 08/08/25 @ 21:48 by Chelsy Bahena MD) Other Family history non-contributory Social History Smoking Status: Former smoker Tobacco Type: Cigarettes packs per day: 0; Second Hand Exposure: No; Do You Dip or Chew Tobacco: No; Hx Alcohol Use: No Hx Substance Use: No Preferred Language: Icelandic Communication Ability: Effective 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 Beliefs That Will Affect Care: None marital status: Single Current Living Situation: Family current occupational status: employed Feels Safe at Home: Yes Assistive Devices: None Review of Systems Review of Systems: All systems reviewed & are unremarkable except as noted in HPI & below Physical Exam Constitutional: WD/WN, vitals as above Eyes: PERRL, conjunctivae normal, anicteric sclerae no anisocoria and no nystagmus ENMT: external ear and nose normal, oropharynx normal Neck: trachea midline, no thyromegaly Respiratory: normal respiratory effort, lungs clear to auscultation Cardiovascular: RRR, no murmur, no edema Chest (Breasts): Chest: normal inspection of chest Gastrointestinal (Abdomen): normal bowel sounds, soft, nontender, no hepatospl enomegaly Musculoskeletal: Extremities: extremities normal to inspection; no cyanosis and no clubbing Skin: no rashes, warm and dry Neurologic: PERRL, EOMI, accommodation nl, no face palsy, no dysarthria moves all extremities and awake; no focal motor deficits Psychiatric: A+Ox3, euthymic affect Lymphatic: no lymphedema Results & Data Results & Data Vital Signs (Past 12 Hours) Vital Signs Temp Pulse Pulse Resp BP BP Pulse Ox 08/08/25 14:38 74 16 114/75 96 08/08/25 12:27 91 H 08/08/25 12:11 85 16 116/84 95 08/08/25 12:11 86 L 08/08/25 11:34 36.2 C L 104 H 19 123/85 96 O2 Del Method 08/08/25 14:38 Room Air 08/08/25 12:27 08/08/25 12:11 Room Air 08/08/25 12:11 Room Air 08/08/25 11:34 Room Air Laboratory Results CBC, CMP, troponin, PT/PTT/INR reviewed ECG Additional Comments: ECG on 08/08/2025 at 1253 with normal sinus rhythm, rate 80, no acute ischemic changes Code Status & VTE Plan Code Status Full code VTE Prophylaxis Plan VTE Prophylaxis will be ordered: Yes PG Care Time/CCT Total # of Minutes Spent Total Time Spent with Patient: Total time spent is greater than 50% in coordination of care (as documented) at patient's floor/unit and/or counseling patient: Coding Level of Care Code 88222 INT INP/OBS CARE 3/75MIN Diagnoses Complicated migraine G43.109 Vertigo R42 Generalized anxiety disorder with panic attacks F41.1; F41.0
--- NOTE | 2025-08-08 15:35 | Electrocardiogram Report ---
Test Reason : Blood Pressure : */* mmHG Vent. Rate : 80 BPM Atrial Rate : 81 BPM P-R Int : 178 ms QRS Dur : 76 ms QT Int : 364 ms P-R-T Axes : 44 42 41 degrees QTcB Int : 419 ms Normal sinus rhythm Normal ECG When compared with ECG of 27-Jul-2025 08:35, No significant change was found Confirmed by Agustin Canales ([id number]) on 08/08/2025 3:34:36 PM Referred By: REFERRED SELF Confirmed By: Agustin Canales
[2025-08-08] MEDS: DIVALPROEX EXTENDED RELEASE 500 MG TAB PO ONE (16:31)
--- NOTE | 2025-08-08 17:22 | Magnetic Resonance Report ---
Technique: Magnetic resonance angiography was performed of the [place] of [place] using a 3 D time of flight technique. Angiographic reconstructions were obtained Findings: The visualized internal carotid arteries appear unremarkable bilaterally. No definite stenosis or aneurysm is identified of the anterior, middle, or posterior cerebral artery circulations bilaterally. The cerebellar arteries are patent. The basilar artery appears unremarkable. No vascular malformation is seen. No other definite abnormality is noted. Impression: Unremarkable MRA of the brain Electronically signed by Tripp Vernon 08-08-2025 5:22 PM
--- NOTE | 2025-08-08 17:27 | Magnetic Resonance Report ---
Technique: Magnetic resonance angiography was informed of the neck using 2 D time of flight technique. Multiple angiographic reconstructions were obtained Findings: No stenosis is seen of the common carotid arteries bilaterally. There is diminished signal in the carotid bulbs bilaterally that may be artifactual. No definite stenosis is seen of the internal carotid arteries bilaterally. The vertebral arteries are not well evaluated due to artifact. Impression: No definite stenosis of the neck arteries. Evaluation is limited by artifact. CTA could be considered if concern persists Electronically signed by Tripp Vernon 08-08-2025 5:26 PM
[2025-08-08] MEDS ORDERED: ONDANSETRON INJ 2 MG/ML 2 ML VIAL IV PRN (18:11)
[2025-08-08] MEDS ORDERED: POLYETHYLENE (MIRALAX) 17 GM PACK PO PRN (18:11)
[2025-08-08] MEDS: ACETAMINOPHEN 500 MG TAB PO STA (18:14)
[2025-08-08] MEDS: LACTATED RINGER'S 1,000 ML IV SCH (19:53)
[2025-08-08] MEDS: ENOXAPARIN INJ 40 MG/0.4 ML SYR SQ SCH (21:02)
[2025-08-08] MEDS: VERAPAMIL HCL 120 MG TABCR PO SCH (21:06)
[2025-08-09] MEDS: LEVOTHYROXINE SODIUM 175 MCG TABLET PO SCH (06:07)
[2025-08-09] MEDS: ACETAMINOPHEN 325 MG TAB PO PRN (07:36)
[2025-08-09 08:05] LABS: Anion Gap 10.0 (3-11); Blood Urea Nitrogen 17.0 mg/dl (6-23); Calcium 9.1 mg/dl (8.6-10.3); Carbon Dioxide 22.0 mmol/L (21-32); Chloride 105.0 mmol/L (98-107); Creatinine Clr Calc Pharmacy 128.4 ml/min; Glucose 174.0 mg/dl (70-99(Fasting)); Magnesium 1.8 mg/dl (1.7-2.4); Potassium 4.0 mmol/L (3.5-5.1); Sodium 137.0 mmol/L (136-145)
[2025-08-09 08:21] LABS: Thyroid Stimulating Hormone 0.696 uIu/ml (0.300-4.500)
[2025-08-09] MEDS: CLOPIDOGREL BISULFATE 75 MG TAB PO SCH (09:15)
[2025-08-09] MEDS: ASPIRIN 81 MG ECTAB PO SCH (09:15)
[2025-08-09] MEDS: CHOLECALCIFEROL 25 MCG (1000 UNITS) TAB PO SCH (09:15)
[2025-08-09] MEDS: DIVALPROEX EXTENDED RELEASE 500 MG TAB PO SCH (09:15)
[2025-08-09] MEDS: FLUTICASONE/VILANTEROL 100/25MCG 14 PUFFS/INHALER INH SCH (09:16)
[2025-08-09] MEDS: MAGNESIUM SULFATE / D5W 1 GM/100 ML BAG IV ONE (11:22)
[2025-08-09] MEDS: diphenhydrAMINE 50 MG/ML VIAL IV PRN (17:44)
[2025-08-09] MEDS: METOCLOPRAMIDE HCL INJ 5 MG/ML 2 ML VIAL IV PRN (17:44)
--- NOTE | 2025-08-09 18:12 | Hospitalist Progress Note ---
Date of Service August 09, 2025 Assessment & Plan (1) Complicated migraine: (2) Vertigo: (3) Generalized anxiety disorder with panic attacks: Plan This patient is a 45-year-old female with a history of migraine headaches, hypothyroidism, anxiety disorder, with recent admission from 07/27/2025- 08/01/2025 for TIA versus complex migraine, who presents as a readmission for persistent dizziness and migraine headache with ambulatory dysfunction #Vertigo/complex migraine-persistent, daily, for over 1 week despite starting Depakote. She recently stopped her Topamax and sumatriptan during last admission. Last admission she was worked up for stroke and had a negative MRI of the brain, negative carotid ultrasound, but did not have CT angiograms due to her IV contrast dye allergy. She was started on dual antiplatelet therapy and atorvastatin at that time as well as started on Depakote. Symptoms have persisted. MRA head and neck here are negative. Migraine headache with photophobia but no nausea continues despite IV steroids, IV fluids -Continue Solu-Medrol 60 mg IV every 12 hours for migraine - Increased Depakote ER to 1000 mg p.o. daily - Started verapamil 120 mg p.o. at bedtime for migraine prevention - Give Reglan and Benadryl migraine cocktail as needed every 6 hours. Tylenol as needed for headache as well - Okay to continue aspirin, Plavix, atorvastatin but doubtful that she had a TIA last admission -Give 1 g of IV magnesium - If not improving by 08/10, will consider neurology consultation #Hypothyroidism-TSH are normal 0.696 - Continue home levothyroxine #Anxiety disorder-no acute issues, recently stopped clonazepam in 04/2025 without any withdrawal symptoms - Continue home bupropion, Seroquel DVT prophylaxis-SQ Lovenox, SCDs Disposition-continued stay on medical/surgical unit. PT evaluation recommends returning home but patient does not feel ready to go home yet. Admission and Anticipated Discharge Date Admission Date: August 08, 2025 Subjective Patient reports ongoing headache that is posterior and frontal and some pressure behind her eyes that is increasing in severity to a 4 or 5 out of 10. Tylenol did not help and she just took Reglan and Benadryl which made her initially feel some heart palpitations. Her heart rate was 105 when I saw her and regular. She still feels just as dizzy as she has and feels no better thus far. She is eating and drinking, denies any nausea or vomiting. Is having some light sensitivity. She previously was on clonazepam for anxiety but ran out of it about 3 months ago and did not have any withdrawal symptoms at that time. Physical Exam Constitutional: WD/WN, vitals as above Eyes: no nystagmus Neck: trachea midline, no thyromegaly Respiratory: normal respiratory effort, lungs clear to auscultation Cardiovascular: RRR, no murmur, no edema Chest (Breasts): Chest: normal inspection of chest Gastrointestinal (Abdomen): normal bowel sounds, soft, nontender, no hepatosplenomegaly Musculoskeletal: Extremities: extremities normal to inspection; no cyanosis and no clubbing Skin: no rashes, warm and dry Neurologic: moves all extremities and awake; no focal motor deficits Psychiatric: Orientation: alert and oriented x 3 Affect: + flat affect Results & Data Results & Data Vital Signs (Past 12 Hours) Vital Signs Temp Pulse Resp BP Pulse Ox O2 Del Method 08/09/25 17:51 100 H 147/79 H 08/09/25 15:15 36.6 C 102 H 18 132/80 95 Room Air 08/09/25 07:22 36.4 C L 80 18 123/82 96 Room Air Laboratory Results BMP, magnesium, TSH reviewed Diagnostic Findings MRA head and neck reviewed PG Care Time/CCT Total # of Minutes Spent Total Time Spent with Patient: Total time spent is greater than 50% in coordination of care (as documented) at patient's floor/unit and/or counseling patient: Coding Level of Care Code 08437 SUB INP/OBS CARE 2/35MIN Diagnoses Complicated migraine G43.109 Vertigo R42 Generalized anxiety disorder with panic attacks F41.1; F41.0
--- NOTE | 2025-08-10 13:58 | Hospitalist Progress Note ---
Date of Service August 10, 2025 Assessment & Plan (1) Complicated migraine: (2) Vertigo: (3) Generalized anxiety disorder with panic attacks: Plan This patient is a 45-year-old female with a history of migraine headaches, hypothyroidism, anxiety disorder, with recent admission from 07/27/2025- 08/01/2025 for TIA versus complex migraine, who presents as a readmission for persistent dizziness and migraine headache with ambulatory dysfunction #Vertigo/complex migraine-persistent, daily, for over 1 week despite starting Depakote. She recently stopped her Topamax and sumatriptan during last admission. Last admission she was worked up for stroke and had a negative MRI of the brain, negative carotid ultrasound, but did not have CT angiograms due to her IV contrast dye allergy. She was started on dual antiplatelet therapy and atorvastatin at that time as well as started on Depakote. Symptoms have persisted. MRA head and neck here are negative. Migraine headache with photophobia but no nausea is now resolved after receiving IV steroids, IV fl uids, and 1 dose of Reglan with Benadryl. Unfortunately, her vertigo still persist. Perhaps there is some peripheral vertigo going on here as well. Meclizine and Valium have not helped her in the past -Continue Solu-Medrol 60 mg IV every 12 hours - Continue increased dose of Depakote ER to 1000 mg p.o. daily - Started verapamil 120 mg p.o. at bedtime for migraine prevention - Continue Reglan and Benadryl migraine cocktail as needed every 6 hours for migraine. Tylenol as needed for headache as well - Okay to continue aspirin, Plavix, atorvastatin but doubtful that she had a TIA last admission -Will ask PT to do Lu maneuvers and see if this helps in case of peripheral vertigo #Hypothyroidism-TSH are normal 0.696 - Continue home levothyroxine #Anxiety disorder-no acute issues, recently stopped clonazepam in 04/2025 without any withdrawal symptoms - Continue home bupropion, Seroquel DVT prophylaxis-SQ Lovenox, SCDs Disposition-continued stay on medical/surgical unit. PT evaluation recommends returning home but patient does not feel ready to go home yet. Hopeful for discharge to home on 08/11 Admission and Anticipated Discharge Date Admission Date: August 08, 2025 Subjective Patient reports her migraine headache is now gone, but still remains dizzy with the room spinning whenever she tries to walk. She walked on her own a little bit in the halls but fell like she had grabbed the railing so she did not fall over. She does not feel comfortable going home yet. She is eating and drinking, no nausea or vomiting. Physical Exam Constitutional: WD/WN, vitals as above Eyes: no nystagmus Neck: trachea midline, no thyromegaly Respiratory: normal respiratory effort, lungs clear to auscultation Cardiovascular: RRR, no murmur, no edema Chest (Breasts): Chest: normal inspection of chest Psychiatric: A+Ox3, euthymic affect Results & Data Results & Data Vital Signs (Past 12 Hours) Vital Signs Temp Pulse Resp BP Pulse Ox O2 Del Method 08/10/25 07:06 36.5 C 74 18 112/74 95 Room Air Laboratory Results No labs to review PG Care Time/CCT Total # of Minutes Spent Total Time Spent with Patient: Total time spent is greater than 50% in coordination of care (as documented) at patient's floor/unit and/or counseling patient: Coding Level of Care Code 68151 SUB INP/OBS CARE 2/35MIN Diagnoses Complicated migraine G43.109 Vertigo R42 Generalized anxiety disorder with panic attacks F41.1; F41.0
[2025-08-11 08:35] VITALS: RESP 16; TEMP 97.9; O2SAT 95
--- NOTE | 2025-08-11 11:03 | Discharge Summary ---
Discharge Summary Date of Service August 11, 2025 Principal Dx & Hospital Course #1 = Principal Diagnosis (1) Complicated migraine: (2) Vertigo: (3) Generalized anxiety disorder with panic attacks: Plan This patient is a 45-year-old female with a history of migraine headaches, hypothyroidism, anxiety disorder, with recent admission from 07/27/2025- 08/01/2025 for TIA versus complex migraine, who presents as a readmission for persistent dizziness and migraine headache with ambulatory dysfunction #Vertigo/complex migraine-persistent, daily, for over 1 week despite starting Depakote. She recently stopped her Topamax and sumatriptan during last admission. Last admission she was worked up for stroke and had a negative MRI of the brain, negative carotid ultrasound, but did not have CT angiograms due to her IV contrast dye allergy. She was started on dual antiplatelet therapy and atorvastatin at that time as well as started on Depakote. Symptoms have persisted. MRA head and neck here are negative. Migraine headache with photophobia but no nausea is now resolved after receiving IV steroids, IV fluids, and 1 dose of Reglan with Benadryl. Unfortunately, her vertigo still persists but is somewhat improved. Perhaps there is some peripheral vertigo going on here as well. Meclizine did not help her in the past. She is able to ambulate 500 feet in the halls without any gait assistance and is well enough for discharge to home. She was seen by PT and had Lu maneuvers with minimal improvement in her vertigo - Finish out prednisone 40 mg p.o. once daily x 5 more days - Continue increased dose of Depakote ER to 1000 mg p.o. daily - Started verapamil 120 mg p.o. at bedtime for migraine prevention - Follow-up with neurology in the outpatient office in 2 to 3 weeks - Gave small supply of Valium 5 mg p.o. 3 times daily as needed vertigo to take home - Okay to continue aspirin indefinitely, Plavix for 5 more days, and continue atorvastatin in case of previous TIA from previous admission - Gave prescription for outpatient PT to do Lu maneuvers and see if this helps in case of peripheral vertigo #Hypothyroidism-TSH are normal 0.696 - Continue home levothyroxine #Anxiety disorder-no acute issues, recently stopped clonazepam in 04/2025 without any withdrawal symptoms - Continue home bupropion, Seroquel DVT prophylaxis-SQ Lovenox, SCDs Disposition-discharge to home Notes For Next Care Provider Medication Changes From Visit Added prednisone 40 mg p.o. daily x 5 days Added Valium 5 mg p.o. 3 times daily as needed vertigo Added verapamil 120 mg ER p.o. at bedtime Increased Depakote to 1000 mg ER p.o. once daily Stopped rizatriptan-triptans not recommended with complex migraine Admission HPI Per Admitting Provider This patient is a 45-year-old female with a history of migraine headaches, hypothyroidism, anxiety disorder, with recent admission from 07/27/2025- 08/01/2025 for TIA versus complex migraine, who presents as a readmission for persistent dizziness. She reports that ever since she returned home 1 week prior, she has had daily persistent dizziness like the room is spinning around her. She did not have a headache after she returned home but does report a headache today. Denies fevers or chills, no cough or cold symptoms, no chest pain or shortness of breath, no nausea or vomiting or abdominal pain or diarrhea. She reports that the only time the dizziness goes away is when she is sleeping but as soon as she wakes up and gets out of bed in the morning it returns. She has had difficulty walking, caring for her children, and working. There is nothing that she has tried to make it better. She has been taking the Depakote as prescribed last admission as well as dual antiplatelet therapy and atorvastatin for possible TIA. In the ED, her vital signs were normal, her laboratory workup was normal. She will be admitted for persistent vertigo possibly due to complex migraine versus peripheral vertigo, with ambulatory dysfunction. Discharge Exam Constitutional WD/WN, vitals as above Eyes no nystagmus Neck trachea midline, no thyromegaly Respiratory normal respiratory effort, lungs clear to auscultation Cardiovascular RRR, no murmur, no edema Chest (Breasts) Chest: normal inspection of chest Neurologic PERRL, EOMI, accommodation nl, no face palsy, no dysarthria moves all extremities and awake; no focal motor deficits Psychiatric A+Ox3, euthymic affect Discharge Plan Discharge Items Patient Disposition: Home - Self-Care Reason For Visit: COMPLEX MIGRAINE Discharge Diagnosis: Complex migraine Condition on Discharge: Good Activity: As commented below Bathing: No limitations Exercise/Sports: Gradually increase as tolerated Exercise Comment: With walker for gait assistance as needed Driving/Machine Use: No driving until dizziness resolved Weightbearing: Full weightbearing Non-emergency contact: Primary Care Provider and Neurologist Call non-emergency contact if: you have any medication questions and your symptoms worsen Follow-up/Referrals: José Olivier MD [Physician] - (Follow-up within 2-3 weeks after discharge) Yuri Byrnes DO [Primary Care Provider] - (Follow-up within 1-2 weeks) Diet: Regular Addtl Attending Provider Instructions: You were admitted with ongoing dizziness from a complicated/complex migraine headache. Your Depakote dose was increased, and you were started on verapamil- both medications are for treatment of complex migraines. You were also given steroids to help with the migraine. Please finish out the steroids as prescribed. You had an MR angiogram of the head and neck which were negative for aneurysms or blockages in the blood vessels in the brain. Please follow-up with the neurologist within 2 to 3 weeks after your discharge. Their office should be reaching out to you to schedule the appointment. For the vertigo, you can also take Valium as needed. You will be given a prescription for outpatient physical therapy to help with this as well. You can use the walker as needed for balance. You can finish out 5 more days of the clopidogrel, and then continue on aspirin 81 mg daily alone in case of previous mini stroke or TIA from your last hospital admission. Please also continue on the atorvastatin you were given during the last admission. It was a pleasure taking care of you! If you have any questions about your care before your hospital follow-up visit with your primary care provider, please call [phone] and ask to be transferred to the [facility] Medicine office. Sincerely, Chelsy Bahena M.D. Pending Studies at Discharge: No Stand-Alone Forms: My [facility], Work/School Release, Smoking Cessation Medications and DC Order Prescriptions: New verapamil 120 mg Tablet Extended Release 120 mg PO HS Qty: 30 0RF diazepam 5 mg Tablet 5 mg PO Q8H PRN (Reason: vertigo) Qty: 15 0RF divalproex 500 mg Tablet Extended Release 24 Hr 1,000 mg PO DAILY Qty: 60 0RF prednisone 20 mg Tablet 40 mg PO QAM Qty: 10 0RF Continued celecoxib 100 mg capsule 100 mg PO BID PRN (Reason: pain) Qty: 60 0RF Hold Instructions: Resume on 08/17/25. You may resume after completing your course of aspirin and clopidogrel cyanocobalamin (vitamin B-12) 1,000 mcg/mL solution 1,000 mcg IM WK Rx Instructions: SUNDAYS epinephrine 0.3 mg/0.3 mL auto-injector 0.3 mg IM DIRECTED PRN (Reason: Allergic Reaction) cholecalciferol (vitamin D3) [Vitamin D3] 25 mcg (1,000 unit) Capsule 1,000 mcg PO DAILY Rx Instructions: PT UNSURE OF STRENGTH bupropion HCl 300 mg tablet extended release 24 hr 300 mg PO HS quetiapine 50 mg tablet 50 mg PO HS fluticasone furoate-vilanterol [Breo Ellipta] 100-25 mcg/dose Blister With Device 1 inh INHALATION DAILY levothyroxine 175 mcg tablet 175 mcg PO QAM atorvastatin 40 mg tablet 40 mg PO DAILY Qty: 30 0RF clopidogrel 75 mg tablet 75 mg PO QAM 5 Days Qty: 0 0RF aspirin 81 mg Tablet,Delayed Release (Dr/Ec) 81 mg PO QAM 0 Days Qty: 90 0RF Discontinued divalproex [Depakote ER] 500 mg tablet extended release 24 hr 500 mg PO DAILY 30 Days Qty: 30 0RF rizatriptan 10 mg tablet 10 mg PO ONCE PRN (Reason: Migraine Headache) Rx Instructions: take 1 tab at onset of headache; if no relief may repeat 1 tab after at least 2 hrs; max = 3 tabs/24 hr Discharge Orders: Discharge Order (Routine); Ordered 08/11/25 Ordered By: Chelsy Bahena Admission Data Admit Date/Time: 08/08/25 16:09 Attending Provider: Chelsy Bahena Admit Provider: Chelsy Bahena Primary Care Provider: Yuri Byrnes Other Providers: Chelsy Bahena Hospital Stay Data Consultations 08/08/25 18:01 ED Decision to Admit Stat Diagnostic Imagining Performed 08/08/25 16:09 MR angio head wo con Stat MR angio neck wo con Stat Pending Results Patient Have Any Pending Studies at Discharge: No Discharge Instructions Given to Patient (Per Discharging Provider) You were admitted with ongoing dizziness from a complicated/complex migraine headache. Your Depakote dose was increased, and you were started on verapamil- both medications are for treatment of complex migraines. You were also given steroids to help with the migraine. Please finish out the steroids as prescribed. You had an MR angiogram of the head and neck which were negative for aneurysms or blockages in the blood vessels in the brain. Please follow-up with the neurologist within 2 to 3 weeks after your discharge. Their office should be reaching out to you to schedule the appointment. For the vertigo, you can also take Valium as needed. You will be given a prescription for outpatient physical therapy to help with this as well. You can use the walker as needed for balance. You can finish out 5 more days of the clopidogrel, and then continue on aspirin 81 mg daily alone in case of previous mini stroke or TIA from your last hospital admission. Please also continue on the atorvastatin you were given during the last admission. It was a pleasure taking care of you! If you have any questions about your care before your hospital follow-up visit with your primary care provider, please call [phone] and ask to be rodgers sferred to the [facility] Medicine office. Sincerely, Chelsy Bahena M.D. Total Time Total Time Spent Total Time Spent (In Minutes): 35 min Total Time Includes: Examination of the Patient, Discharge Planning and Medication Reconciliation Coding Level of Care Code 12675 INP/OBS DISCH >30 MIN Diagnoses Complicated migraine G43.109 Vertigo R42 Generalized anxiety disorder with panic attacks F41.1; F41.0
[2025-08-11 13:12] VITALS: BP 126/78; PULSE 85
[2025-08-12] MEDS ORDERED: predniSONE 20 MG TAB PO SCH (09:00)
== END 2025-08-11 14:54 | disposition home or self-care (01) | DRG 103 ==
LOC: SUATTDRO → ED 11:22 → EDINP 16:09 → INTOOBSV 16:09 → EDINP 21:19 → 3W 22:46